=== PATIENT | female | born 1985 | race African-American/Black ===

== ENCOUNTER 2017-07-14 13:21 | Emergency (ER) | payer MEDICAID ==
[~2017-07-14] VITALS: Ht 149.9 cm; Wt 45.4 kg
[~2017-07-14 13:21] MED LIST: CIPRO500 MG PO; CYCLOBENZAPRINE10 MG ORAL; FERROUS SULFAT325 MG ORAL; HYDROCODON-ACE1 EA15 ORAL; IBUPROFEN800 MG ORAL; OCUFLOX5 ML OP; PREDNISONE20 MG ORAL; TRAMADOL HCL50 MG ORAL
[2017-07-14 13:52] VITALS: BP 125/87
--- NOTE | 2017-07-14 14:07 | Emergency Room Report ---
History of Present Illness General Chief Complaint: Allergic Reaction Source: Patient Present Illness HPI 31-year-old female presents to the emergency department for medication refill of prednisone which she takes as needed for her flare-ups of lupus. Patient states that since yesterday she has had moderate pressure and paresthesias on the right side of her face in addition to stiff joints and intermittent muscle spasms. Patient denies pain at this time. Patient states that her symptoms are similar in character to what she normally experiences during a lupus flare- up. Reports last flare was several months ago and has not recently been taking prednisone regularly. Patient denies fevers, chills, head trauma or fall. Patient does report that she had anxiety attack prior to arrival described hyperventilation which resulted in transient paresthesias in the bilateral hands. She also reports erythema, increased lacrimation and discharged to the right eye 3 days. Patient states that he was in contact with someone that had similar symptoms. Denies dysuria, frequency, urgency or hematuria. Patient denies itching, foreign body sensation, eye pain, or swelling to the eyelid. Denies CP, Palpitations, LOC, AMS, dizziness, Changes in Vision, or a sudden severe headache. Allergies: Coded Allergies: No Known Allergies (Unverified , 06/17/14) Patient History Past Medical History: see triage record, other - lupus Past Surgical History: none Pertinent Family History: none Last Menstrual Period: 06/28/17 Now: No Reviewed Nursing Documentation: PMH: Agreed; PSxH: Agreed Nursing Documentation-PMH Past Medical History: No History, Except For Review of Systems All Other Systems: negative except mentioned in HPI Physical Exam Vital Signs Date Time Temp Pulse Resp B/P (MAP) Pulse Ox O2 Delivery O2 Flow Rate FiO2 07/14/17 13:32 98.4 88 16 125/87 97 Room Air 98.4 Sp02 EP Interpretation: reviewed, normal General Appearance: no apparent distress, alert, GCS 15, non-toxic Head: normocephalic, atraumatic Eyes: bilateral eye normal inspection, bilateral eye PERRL, bilateral eye visual acuity - see nursing note, bilateral eye other - Scleral erythema of the right eye, visible purulent d/c noted in the corners of the right eye, EOMI, ENT: hearing grossly normal, normal voice, TMs + canals normal, other - no facial ttp. Neck: full range of motion Respiratory: lungs clear, normal breath sounds, speaking full sentences Cardiovascular #1: regular rate, rhythm Gastrointestinal: normal bowel sounds, non tender, soft Genitourinary: normal inspection, no CVA tenderness Musculoskeletal: back normal, gait/station normal, normal range of motion, non- tender Neurologic: alert, oriented x3, responsive, motor strength/tone normal, sensory intact, normal gait, speech normal, grossly normal Psychiatric: judgement/insight normal, anxious Skin: normal color, no rash, warm/dry, well hydrated Medical Decision Making PA Attestation Dr. Holley is my supervising Physician whom patient management has been discussed with. Diagnostic Impression: Primary Impression: Lupus Qualified Codes: L93.0 - Discoid lupus erythematosus Additional Impressions: Conjunctivitis Qualified Codes: H10.31 - Unspecified acute conjunctivitis, right eye Acute hyperventilation Muscle spasms of both lower extremities ER Course 31-year-old female presents to the emergency department for medication refill of prednisone which she takes as needed for her flare-ups of lupus. Patient states that since yesterday she has had moderate pressure and paresthesias on the right side of her face in addition to stiff joints and intermittent muscle spasms. Patient denies pain at this time. Patient states that her symptoms are similar in character to what she normally experiences during a lupus flare- up. Reports last flare was several months ago and has not recently been taking prednisone regularly. Patient denies fevers, chills, head trauma or fall. Patient does report that she had anxiety attack prior to arrival described hyperventilation which resulted in transient paresthesias in the bilateral hands. She also reports erythema, increased lacrimation and discharged to the right eye 3 days. Patient states that he was in contact with someone that had similar symptoms. Denies dysuria, frequency, urgency or hematuria. Patient denies itching, foreign body sensation, eye pain, or swelling to the eyelid. Denies CP, Palpitations, LOC, AMS, dizziness, Changes in Vision, or a sudden severe headache. Ddx considered but are not limited to: corneal abrasion, acute glaucoma, globe rupture, FB, reactive arthritis, CVA, lupus flare, Corneal Ulcer, conjunctivitis. Iridis, orbital cellulitis,keratitis, Just to name a few. Vital signs: are WNL, pt. is afebrile H&PE are most consistent with: bacterial conjunctivitis, and Lupus Flare-up ORDERS: none at this time. ED INTERVENTIONS: -Ativan PO -Prednisone PO DISCHARGE: At this time pt. is stable for d/c to home. Will provide printed patient care instructions, and any necessary prescriptions. Care plan and follow up instructions have been discussed with the patient prior to discharge. Last Vital Signs Date Time Temp Pulse Resp B/P (MAP) Pulse Ox O2 Delivery O2 Flow Rate FiO2 07/14/17 13:52 98.4 78 16 125/87 97 Room Air 98.4 Disposition: HOME, SELF-CARE Condition: Stable Scripts Methocarbamol* (ROBAXIN*) 500 Mg Tablet 500 MG PO TID for 7 Days, #21 TAB 0 Refills Prov: Albertina Cazares 07/14/17 Ofloxacin (OCUFLOX) 5 Ml Drops 2 DRP OP BID for 5 Days, #5 ML Prov: Albertina Cazares 07/14/17 Prednisone* (PREDNISONE*) 20 Mg Tablet 20 MG ORAL DAILY for 5 Days, #5 TAB 0 Refills Prov: Albertina Cazares 07/14/17 Patient Instructions: Bacterial Conjunctivitis, [id number], Hyperventilation Additional Instructions: Take medications as directed. Follow up with a Primary Care Provider in 3-5 days, even if your symptoms have resolved. --Please review list of primary care clinics, if you do not already have a primary care provider Return sooner to ED if new symptoms occur, or current symptoms become worse. Do not drink alcohol, drive, or operate heavy machinery while taking Robaxin as this may cause drowsiness. - Please note that this Emergency Department Report was dictated using [employer] Sciencesnatural resource manager technology software, occasionally this can lead to erroneous entry secondary to interpretation by the dictation equipment. Albertina Cazares July 14, 2017 14:07
[2017-07-14] MEDS ORDERED: LORazepam 0.5mg tab ORAL ONE (14:15)
[2017-07-14] MEDS ORDERED: PREDNISONE20 MG ORAL (14:40)
[2017-07-14] MEDS ORDERED: OCUFLOX5 ML OP (14:40)
[2017-07-14] MEDS ORDERED: ROBAXIN500 MG PO (14:40)
[2017-07-14 15:10] VITALS: BP 125/87
== END 2017-07-14 15:12 | disposition home or self-care (01) ==
LOC: EMR 14:36
DX: M32.9 Systemic lupus erythematosus, unspecified (principal); H10.9 Unspecified conjunctivitis; R06.4 Hyperventilation; M62.838 Other muscle spasm
CPT/HCPCS: 99284; J7512

== ENCOUNTER 2018-02-06 08:33 | Emergency (ER) | payer SELFPAY ==
[~2018-02-06] VITALS: Ht 149.9 cm; Wt 45.4 kg
[~2018-02-06 08:33] MED LIST changes: +ROBAXIN500 MG PO
[2018-02-06 08:40] VITALS: BP 113/80
[2018-02-06 09:23] LABS: HEMATOCRIT 35.3 % (37.0-47.0); HEMOGLOBIN 9.9 G/DL (12.0-16.0); MEAN CORPUSCULAR VOLUME 63 FL (80-99); PLATELET COUNT 413 K/UL (150-450); RED BLOOD COUNT 5.58 M/UL (4.20-5.40); RED CELL DISTRIBUTION WIDTH 16.4 % (11.6-14.8); WHITE BLOOD COUNT 5.8 K/UL (4.8-10.8)
[2018-02-06] MEDS ORDERED: Ketorolac 30mg Inj IV ONE (09:30)
[2018-02-06] MEDS ORDERED: Cyclobenzaprine 10mg Tab ORAL ONE (09:30)
[2018-02-06 09:33] LABS: ANION GAP 8 mmol/L (5-15); BLOOD UREA NITROGEN 8 mg/dL (7-18); CALCIUM 9.4 MG/DL (8.5-10.1); CARBON DIOXIDE 28 MMOL/L (21-32); CHLORIDE 102 MMOL/L (98-107); CREATININE 0.6 MG/DL (0.55-1.30); POTASSIUM 3.5 MMOL/L (3.5-5.1); SODIUM 138 MMOL/L (136-145)
--- NOTE | 2018-02-06 09:34 | Emergency Room Report ---
History of Present Illness General Chief Complaint: General Complaint Source: Patient Present Illness HPI This patient has a history of lupus. She uses prednisone for her lupus. She is not followed by a specific fiber optic technician. She does have a primary care physician who does refer out 2 different rheumatologists. Patient states she recently had a baby and has not been taking care of herself. She states over the past few days she has had a lupus flare. She describes her symptoms as body aches and fatigue. She also has right I pain and erythema. She is unable to keep her eye open secondary to pain. She states that this does happen with her lupus flares. She states that typically she gets a Toradol shot at emergency departments and some topical steroids for her eye. She denies chest pain or shortness of breath. She denies abdominal pain. She has no other complaints. Allergies: Coded Allergies: No Known Allergies (Unverified , 06/17/14) Patient History Past Medical History: see triage record, other - Lupus, SCD Social History: Reports: drug use; Denies: smoking, alcohol use Last Menstrual Period: 01/30/18 Reviewed Nursing Documentation: PMH: Agreed; PSxH: Agreed Nursing Documentation-PMH Past Medical History: No History, Except For Hx Cardiac Problems: No - Sickle Cell Anemia Hx Neurological Problems: No - ARTHRITIS, LUPUS Review of Systems All Other Systems: negative except mentioned in HPI Physical Exam Vital Signs Date Time Temp Pulse Resp B/P (MAP) Pulse Ox O2 Delivery O2 Flow Rate FiO2 02/06/18 08:40 98.4 91 18 113/80 98 Room Air Sp02 EP Interpretation: reviewed, normal General Appearance: no apparent distress, alert, GCS 15, non-toxic Head: normocephalic, atraumatic Eyes: right eye other - The R. eye has an irregular fluourescin uptake under garcia lamp in the center of the visual axis [id number]. ENT: hearing grossly normal, normal pharynx, no angioedema, normal voice Neck: full range of motion, supple/symm/no masses Respiratory: chest non-tender, lungs clear, normal breath sounds, no respiratory distress, no retraction, no accessory muscle use, speaking full sentences Cardiovascular #1: regular rate, rhythm, no edema Gastrointestinal: normal bowel sounds, non tender, soft, non-distended, no guarding, no rebound Rectal: deferred Musculoskeletal: back normal, gait/station normal, normal range of motion, non- tender, calf tenderness Neurologic: alert, oriented x3, responsive, motor strength/tone normal, sensory intact, speech normal Psychiatric: judgement/insight normal, memory normal, mood/affect normal, no suicidal/homicidal ideation Skin: normal color, no rash, warm/dry, well hydrated Medical Decision Making Diagnostic Impression: Primary Impression: Corneal ulcer Additional Impression: Lupus ER Course This patient has known lupus and presents with a lupus flare. She states that she does get corneal ulcers occasionally when she has a lupus flare. She is on prednisone orally. She sees her primary care physician primarily for her lupus. She does not have a regular fiber optic technician. She admits that she has not been taking care of herself since giving . I am concerned as there is a large corneal ulcer that uptakes on Garcia lamp. I discussed the case with Dr. Burks of ophthalmology. He recommends topical antibiotics and close follow- up with an district court justice. The patient was also educated on the importance of close follow-up with a fiber optic technician and better control of her lupus to prevent complications such as vision loss and other organ complications. Laboratory workup is otherwise reassuring. The patient will be given erythromycin ointment hourly to apply to her right I. She is also educated extensively on the dangers of not following up closely with an district court justice and the possibility of vision loss. Dr. Burks did not recommend any steroid drops. The patient needs to see a fiber optic technician urgently. The patient indicated understanding and intention to do so. The patient is given close return precautions and follow-up instructions. Please note that this Emergency Department Report was dictated using Live[employer] security architect technology software, occasionally this can lead to erroneous entry secondary to interpretation by the dictation equipment. Laboratory Tests Test 02/06/18 08:57 02/06/18 10:02 White Blood Count 5.8 K/UL (4.8-10.8) Red Blood Count 5.58 M/UL (4.20-5.40) H Hemoglobin 9.9 G/DL (12.0-16.0) L Hematocrit 35.3 % (37.0-47.0) L Mean Corpuscular Volume 63 FL (80-99) L Mean Corpuscular Hemoglobin 17.7 PG (27.0-31.0) L Mean Corpuscular Hemoglobin Concent 28.1 G/DL (32.0-36.0) L Red Cell Distribution Width 16.4 % (11.6-14.8) H Platelet Count 413 K/UL (150-450) Mean Platelet Volume 7.4 FL (6.5-10.1) Neutrophils (%) (Auto) % (45.0-75.0) Lymphocytes (%) (Auto) % (20.0-45.0) Monocytes (%) (Auto) % (1.0-10.0) Eosinophils (%) (Auto) % (0.0-3.0) Basophils (%) (Auto) % (0.0-2.0) Differential Total Cells Counted 100 Neutrophils % (Manual) 76 % (45-75) H Lymphocytes % (Manual) 14 % (20-45) L Monocytes % (Manual) 6 % (1-10) Eosinophils % (Manual) 2 % (0-3) Basophils % (Manual) 2 % (0-2) Band Neutrophils 0 % (0-8) Platelet Estimate Adequate Platelet Morphology Normal Hypochromasia 2+ Anisocytosis 1+ Microcytosis 3+ Erythrocyte Sedimentation Rate 12 MM/HR (0-20) Sodium Level 138 MMOL/L (136-145) Potassium Level 3.5 MMOL/L (3.5-5.1) Chloride Level 102 MMOL/L (98-107) Carbon Dioxide Level 28 MMOL/L (21-32) Anion Gap 8 mmol/L (5-15) Blood Urea Nitrogen 8 mg/dL (7-18) Creatinine 0.6 MG/DL (0.55-1.30) Estimate Glomerular Filtration Rate > 60 mL/min (>60) Glucose Level 78 MG/DL (74-106) Calcium Level 9.4 MG/DL (8.5-10.1) Total Bilirubin 0.4 MG/DL (0.2-1.0) Aspartate Amino Transferase (AST) 16 U/L (15-37) Alanine Aminotransferase (ALT) 14 U/L (12-78) Alkaline Phosphatase 58 U/L (46-116) C-Reactive Protein, Quantitative < 0.4 mg/dL (0.00-0.90) Total Protein 9.1 G/DL (6.4-8.2) H Albumin 4.0 G/DL (3.4-5.0) Globulin 5.1 g/dL Albumin/Globulin Ratio 0.8 (1.0-2.7) L Urine Color Pale yellow Urine Appearance Clear Urine pH 7 (4.5-8.0) Urine Specific [place] 1.010 (1.005-1.035) Urine Protein Negative (NEGATIVE) Urine Glucose (UA) Negative (NEGATIVE) Urine Ketones 3+ (NEGATIVE) H Urine Blood Negative (NEGATIVE) Urine Nitrite Negative (NEGATIVE) Urine Bilirubin Negative (NEGATIVE) Urine Urobilinogen Normal MG/DL (0.0-1.0) Urine Leukocyte Esterase 1+ (NEGATIVE) H Urine RBC 0 /HPF (0 - 2) Urine WBC 0-2 /HPF (0 - 2) Urine Squamous Epithelial Cells Few /LPF (NONE/OCC) Urine Bacteria Occasional /HPF (NONE) Urine HCG, Qualitative Negative (NEGATIVE) Last Vital Signs Date Time Temp Pulse Resp B/P (MAP) Pulse Ox O2 Delivery O2 Flow Rate FiO2 02/06/18 08:40 98.4 91 18 113/80 98 Room Air Status: improved Disposition: HOME, SELF-CARE Condition: Improved Referrals: NOT CHOSEN IPA/,REFERRING (PCP) Kathi Schmid DO Feb 06, 2018 09:34
[2018-02-06 09:38] LABS: ALANINE AMINOTRANSFERASE 14 U/L (12-78); ALBUMIN/GLOBULIN RATIO 0.8 (1.0-2.7); ALKALINE PHOSPHATASE 58 U/L (46-116); ASPARTATE AMINO TRANSFERASE 16 U/L (15-37); BILIRUBIN,TOTAL 0.4 MG/DL (0.2-1.0)
[2018-02-06] MEDS ORDERED: Fluorescein Strips ONE (10:04)
[2018-02-06] MEDS ORDERED: Tetracaine 0.5% Opth 4ml Soln RIGHT EYE ONE (10:15)
[2018-02-06] MEDS ORDERED: Fluorescein Strips RIGHT EYE ONE (10:15)
[2018-02-06 10:20] LABS: APPEARANCE,URINE CLEAR; BILIRUBIN, URINE NEGATIVE (NEGATIVE); COLOR,URINE PALE YELLOW; GLUCOSE, URINE (UA) NEGATIVE (NEGATIVE); KETONES,URINE 3+ (NEGATIVE); LEUKOCYTE ESTERASE ,URINE 1+ (NEGATIVE); NITRITE,URINE NEGATIVE (NEGATIVE); PH,URINE 7 (4.5-8.0); PROTEIN,URINE NEGATIVE (NEGATIVE); UROBILINOGEN,URINE NORMAL MG/DL (0.0-1.0)
[2018-02-06 12:00] VITALS: BP 124/68
[2018-02-06] MEDS ORDERED: ERYTHROMYCIN3.5 GM RIGHT EYE (12:52)
[2018-02-06] MEDS ORDERED: CYCLOBENZAPRINE10 MG ORAL (13:01)
[2018-02-06 13:07] VITALS: BP 124/68
== END 2018-02-06 13:08 | disposition home or self-care (01) ==
LOC: EMR 09:19
DX: H16.001 Unspecified corneal ulcer, right eye (principal); M32.9 Systemic lupus erythematosus, unspecified
CPT/HCPCS: 36415; 80053; 81003; 81025; 85007; 85025; 85651; 86140; 96361; 96374; 99284; J1885

== ENCOUNTER 2018-02-20 15:01 | Emergency (ER) | payer SELFPAY ==
[~2018-02-20] VITALS: Ht 149.9 cm; Wt 45.4 kg
[~2018-02-20 15:01] MED LIST changes: +ERYTHROMYCIN3.5 GM RIGHT EYE
[2018-02-20 15:10] VITALS: BP 118/76
[2018-02-20] MEDS ORDERED: Albuterol/Ipratropium 3ml neb HHN ONE (15:30)
--- NOTE | 2018-02-20 15:36 | Emergency Room Report ---
History of Present Illness General Chief Complaint: General Complaint Source: Patient Present Illness HPI 32-year-old female patient presents the ER complaining of lupus flare. Reports symptoms have been present for the past 3 days. States has not been taking any prednisone or other medication for relief of symptoms. Patient reports that she has a follow-up appointment scheduled with her doctor next week. Patient reports previously seen here a few days ago for corneal ulcer, states has been taking antibiotic eyedrops and symptoms have improved. Denies fever chest pain. Reports some difficulty breathing, observed hyperventilating in the ER, Pulse ox over 95 at triage. Denies history of asthma or TX. History of similar symptoms int he past, hx of anxiety, seen in ER here for similar symptoms. Denies abdominal pain. Denies vomiting or diarrhea. Requesting work note. Denies dysuria, hematuria. Requesting work note. Allergies: Coded Allergies: No Known Allergies (Unverified , 06/17/14) Patient History Past Medical History: see triage record Now: No Reviewed Nursing Documentation: PMH: Agreed; PSxH: Agreed Nursing Documentation-PMH Past Medical History: No History, Except For Hx Cardiac Problems: No - Sickle Cell Anemia Hx Neurological Problems: No - ARTHRITIS, LUPUS Review of Systems All Other Systems: negative except mentioned in HPI Physical Exam Vital Signs Date Time Temp Pulse Resp B/P (MAP) Pulse Ox O2 Delivery O2 Flow Rate FiO2 02/20/18 15:07 98.4 90 19 121/79 98 Room Air Sp02 EP Interpretation: reviewed, normal General Appearance: well appearing, no apparent distress, alert, GCS 15, non- toxic Head: normocephalic, atraumatic Eyes: left eye Scleral Injection; bilateral eye normal inspection, bilateral eye PERRL ENT: hearing grossly normal, normal pharynx, no angioedema, normal voice, TMs + canals normal, uvula midline, moist mucus membranes Neck: full range of motion Respiratory: lungs clear, normal breath sounds, no rhonchi, no respiratory distress, no accessory muscle use, no wheezing, speaking full sentences Cardiovascular #1: regular rate, rhythm, no edema Cardiovascular #2: 2+ radial (R), 2+ radial (L) Gastrointestinal: non tender, soft, no mass, non-distended, no guarding, no rebound Genitourinary: no CVA tenderness Musculoskeletal: back normal, digits/nails normal, gait/station normal, normal range of motion, non-tender, no calf tenderness, Vicenta's Sign negative Neurologic: alert, oriented x3, responsive, motor strength/tone normal, sensory intact Psychiatric: mood/affect normal Skin: no rash Lymphatic: no adenopathy Medical Decision Making PA Attestation Dr. Callahan is my supervising Physician whom patient management has been discussed with. Diagnostic Impression: Primary Impression: Lupus Additional Impression: Breathing difficulty ER Course Pt presents to ED c/o lupus flare. DDX considered but are not limited to lupus complication, asthma, viral URI, influenza, bronchitis, pneumonia, anxiety, arthritis, influenza, viral URI. No rhonchi or rales, patient afebrile, low suspicion for pneumonia at this time , does not require x-rays or imaging. Negative Vicenta sign, no tachycardia, no hemoptysis, no calf pain, low suspicion for PE per Well's criteria. Denies hx of TX, denies chest pain, low suspicion for cardiac etiology of symptoms. VITAL SIGNS are WNL, patient is afebrile. Ordered breathing treatment and medication. ER COURSE Lungs clear to auscultation, his rhonchi rales, no stridor, decreased breath sounds however will order chest x-ray and breathing treatment for patient. Patient provided with prednisone. Duoneb breathing treatment provided. Following treatment patient states no longer having difficulty with breathing. Patient is resting comfortably in no acute distress. CXR shows no acute disease. Breathing symptoms likely bronchitis vs related to hx of anxiety and hyperventilation. Provide patient with albuterol inhaler and prednisone at discharge home. Take Tylenol for pain symptoms related to lupus flare and prednisone. Provided with a work note per patient request. Advised to follow-up with primary care provider and senior database engineer. She states called and scheduled appointment. ER precautions given. DISCHARGE: -Rx given for Prednisone. -Rx provided for Albuterol MDI Rx provided for Tylenol At this time pt is stable for d/c to home. Patient is resting comfortably in no acute distress, nontoxic appearing, able to answer questions without difficulty. Patient to take medications as instructed Will provide with patient care instructions and any necessary prescriptions. Care plan and follow-up instructions provided. Patient instructed to follow-up with primary care provider in 3 - 5 days. Patient questions asked and answered. Patient reports understanding and agreement to treatment plan. ER precautions given. Patient instructed to return to ER immediately for any new or worsening of symptoms including but not limited to increasing SOB, persistent fever. - Please note that this Emergency Department Report was dictated using [employer]university president technology software, occasionally this can lead to erroneous entry secondary to interpretation by the dictation equipment. Chest X-Ray Diagnostic Results Chest X-Ray Diagnostic Results : Chest X-Ray Ordered: Yes # of Views/Limited/Complete: 1 View Indication: Chest Pain EP Interpretation: Yes PA Xray: Interpretation reviewed, by supervising MD, and agrees with findings. Interpretation: no consolidation, no effusion, no pneumothorax, no acute cardiopulmonary disease Impression: No acute disease NORIS Scribaminta Text Aamir Almodovar PA-C Last Vital Signs Date Time Temp Pulse Resp B/P (MAP) Pulse Ox O2 Delivery O2 Flow Rate FiO2 02/20/18 15:07 98.4 90 19 121/79 98 Room Air Status: improved Disposition: HOME, SELF-CARE Condition: Stable Scripts Albuterol Sulfate* (ALBUTEROL SULFATE MDI*) 8.5 Gm Hfa.aer.ad 2 PUFF INH Q6H, #1 INH 0 Refills Prov: Dio Almodovar 02/20/18 Acetaminophen* (TYLENOL EXTRA STRENGTH*) 500 Mg Tablet 500 MG ORAL Q8H PRN for Prn Headache/Temp > 101, #30 TAB 0 Refills Prov: Dio Almodovar 02/20/18 Prednisone* (PREDNISONE*) 20 Mg Tablet 40 MG ORAL DAILY for 4 Days, #8 TAB Prov: Dio Almodovar 02/20/18 Patient Instructions: Shortness of Breath, [id number], Systemic Lupus Erythematosus, Adult Additional Instructions: Followup with primary care provider in 3 -5 days. Take medications as directed. Patient questions asked and answered. ER precautions given, patient instructed to return to ER immediately for any new or worsening of symptoms. Dio Almodovar Feb 20, 2018 15:35
[2018-02-20] MEDS ORDERED: Ketorolac 30mg Inj IM ONE (15:45)
--- NOTE | 2018-02-20 16:14 | Diagnostic Imaging Report ---
Indication: Chest pain Technique: One view of the chest Comparison: 02/26/2015 Findings: Lungs and pleural spaces are clear. Heart size is normal. No significant interim change Impression: No acute process
[2018-02-20] MEDS ORDERED: PREDNISONE20 MG ORAL (16:21)
[2018-02-20] MEDS ORDERED: TYLENOL EXTRA500 MG ORAL (16:21)
[2018-02-20] MEDS ORDERED: ALBUTEROL SULF8.5 GM INH (16:21)
[2018-02-20 16:32] VITALS: BP 120/81
== END 2018-02-20 16:31 | disposition home or self-care (01) ==
LOC: EMR 16:04
DX: M32.9 Systemic lupus erythematosus, unspecified (principal); R06.00 Dyspnea, unspecified
CPT/HCPCS: 71045; 94640; 94664; 96372; 99284; J1885; J7512; J7620

== ENCOUNTER 2018-03-05 08:29 | Emergency (ER) | payer SELFPAY ==
[~2018-03-05] VITALS: Ht 149.9 cm; Wt 45.4 kg
[~2018-03-05 08:29] MED LIST changes: +ALBUTEROL SULF8.5 GM INH; +TYLENOL EXTRA500 MG ORAL
[2018-03-05 09:07] VITALS: BP 102/67
--- NOTE | 2018-03-05 09:07 | NUR ---
ED Nurse Note:pt. came for left eye burning pain and light sensativity since yesterday, pt. was not able to open left eye for visual acuity check
[2018-03-05] MEDS ORDERED: Fluorescein Strips RIGHT EYE ONE (10:00)
[2018-03-05] MEDS ORDERED: Tetracaine 0.5% Opth 4ml Soln RIGHT EYE ONE (10:00)
--- NOTE | 2018-03-05 10:04 | Emergency Room Report ---
History of Present Illness General Chief Complaint: Eye Problems Source: Patient, Medical Record Present Illness HPI Patient presents with complaints of lupus flare Reports that she gets flareups with pain to her eyes when this happens Recently she was here with discomfort to the right eye however now this morning the left eye started to have discomfort Denies any visual change to it however she feels that when the pain comes on there is some blurriness Denies any vomiting or diarrhea Patient reports that she has not seen any specialist since her last visit here Denies any fevers or chills denies any neck pain she does have some photophobia with this discomfort Allergies: Coded Allergies: No Known Allergies (Unverified , 06/17/14) Patient History Past Medical History: see triage record Pertinent Family History: none Last Menstrual Period: 02/22/2018 Reviewed Nursing Documentation: PMH: Agreed; PSxH: Agreed Nursing Documentation-PMH Past Medical History: No History, Except For Hx Cardiac Problems: No - Sickle Cell Anemia Hx Hypertension: No Hx Pacemaker: No Hx Asthma: No Hx COPD: No Hx Diabetes: No Hx Cancer: No Hx Gastrointestinal Problems: No Hx Dialysis: No History Of Psychiatric Problem: No Hx Neurological Problems: No - ARTHRITIS, LUPUS Hx Cerebrovascular Accident: No Hx Seizures: No Review of Systems All Other Systems: negative except mentioned in HPI Physical Exam Vital Signs Date Time Temp Pulse Resp B/P (MAP) Pulse Ox O2 Delivery O2 Flow Rate FiO2 03/05/18 08:43 98.4 91 14 102/67 98 Room Air Sp02 EP Interpretation: reviewed, normal General Appearance: no apparent distress Head: normocephalic, atraumatic Eyes: left eye other - Mild conjunctival irritation ENT: normal pharynx Neck: supple, thyroid normal Respiratory: lungs clear, normal breath sounds Cardiovascular #1: regular rate, rhythm, no edema Gastrointestinal: non tender, soft, no mass Genitourinary: no CVA tenderness Musculoskeletal: normal inspection Neurologic: alert, oriented x3, responsive Skin: normal color, no rash, warm/dry Lymphatic: no adenopathy Medical Decision Making Diagnostic Impression: Primary Impression: Conjunctivitis Additional Impressions: Lupus Chronic pain ER Course Patient's presentation today reveals some irritation of the left conjunctiva Floor seen stain with tetracaine drops were applied there is no sign of any uptake Patient has similar presentation recently affecting the right eye Patient at that time was discussed regarding possible corneal injury however reports that she has not seen any specialty as of yet in the right eye did improve Patient was discussed regarding the need for close follow-up Her signs and symptoms could be leading to worsening pathology and patient requires improved follow-up Last Vital Signs Date Time Temp Pulse Resp B/P (MAP) Pulse Ox O2 Delivery O2 Flow Rate FiO2 03/05/18 09:07 98.4 69 14 102/67 98 Room Air Status: improved Disposition: HOME, SELF-CARE Condition: Improved Scripts Acetaminophen With Codeine (T#3) (TYLENOL #3 TAB*) Y Tab 1 TAB ORAL Q8H PRN for For Pain, #10 TAB Prov: London Holley DO 03/05/18 Referrals: NOT CHOSEN IPA/MD,REFERRING (PCP) Additional Instructions: Patient is provided with the discharge instructions notified to follow up with primary doctor in the next 2-3 days otherwise return to the er with any worsening symptoms. Please note that this report is being documented using DRAGON technology. This can lead to erroneous entry secondary to incorrect interpretation by the dictating instrument. London Holley DO Mar 05, 2018 10:04
[2018-03-05] MEDS ORDERED: ACETAMINOPHEN-1 EAC1 ORAL (10:12)
[2018-03-05] MEDS ORDERED: Ketorolac 60mg Inj IM ONE (10:15)
[2018-03-05 10:40] VITALS: BP 102/67
--- NOTE | 2018-03-05 10:42 | NUR ---
PT is Dc per Md order. pt vital signs is stable. pt is alert and oriented times 4, pt is able to ambulate with steady gait. pt has left with all belongings, as well as DC notes and prescriptions. pt is able to teach back DC notes and prescriptions. pt vital signs, status, and condition was reported to ERMD prior to DC. pt is instructed to follow up with primary provider as soon as possible. pt is instructed to return to ER as soon as possible if any abnormalities.
== END 2018-03-05 10:42 | disposition home or self-care (01) ==
LOC: EMR 08:53
DX: H10.9 Unspecified conjunctivitis (principal); M32.9 Systemic lupus erythematosus, unspecified; G89.29 Other chronic pain
CPT/HCPCS: 96372; 99283

== ENCOUNTER 2018-03-13 10:11 | Emergency (ER) | payer MEDICAID ==
[~2018-03-13] VITALS: Ht 149.9 cm; Wt 45.4 kg
[~2018-03-13 10:11] MED LIST changes: +ACETAMINOPHEN-1 EAC1 ORAL
[2018-03-13 10:25] VITALS: BP 121/80
--- NOTE | 2018-03-13 10:25 | NUR ---
ED Nurse Note: A/OX4. AMBULATED IN TO ER DUE TO PAIN IN THE RIGHT EYE AND JOINT PAIN 10/10 SINCE LAST NIGHT. RED EYE AND TEAR NOTED IN THE RIGHT EYE. PT CAME IN WITH DRY DRESSING APPLIED ON THE RIGHT EYE. HX OF LUPUS. NO TRAUMA NOTED.
[2018-03-13] MEDS ORDERED: oxyCODONE HCL/Acetaminophen 5/325mg ORAL ONE (10:30)
--- NOTE | 2018-03-13 10:50 | NUR ---
ED Nurse Note: SPECIMEN SENT DOWN TO THE LAB
[2018-03-13 10:57] LABS: BASOPHILS % (AUTO) 1.1 % (0.0-2.0); EOSINOPHILS % (AUTO) 1.2 % (0.0-3.0); HEMATOCRIT 32.4 % (37.0-47.0); HEMOGLOBIN 9.2 G/DL (12.0-16.0); LYMPHOCYTES % (AUTO) 13.9 % (20.0-45.0); MEAN CORPUSCULAR VOLUME 63 FL (80-99); MONOCYTES % (AUTO) 7.1 % (1.0-10.0); NEUTROPHILS % (AUTO) 76.8 % (45.0-75.0); PLATELET COUNT 348 K/UL (150-450); RED BLOOD COUNT 5.13 M/UL (4.20-5.40); RED CELL DISTRIBUTION WIDTH 17.2 % (11.6-14.8); WHITE BLOOD COUNT 8.1 K/UL (4.8-10.8)
[2018-03-13 11:03] LABS: ANION GAP 10 mmol/L (5-15); BLOOD UREA NITROGEN 7 mg/dL (7-18); CALCIUM 9.4 MG/DL (8.5-10.1); CARBON DIOXIDE 26 MMOL/L (21-32); CHLORIDE 103 MMOL/L (98-107); CREATININE 0.5 MG/DL (0.55-1.30); POTASSIUM 3.7 MMOL/L (3.5-5.1); SODIUM 138 MMOL/L (136-145)
[2018-03-13 11:08] LABS: ALANINE AMINOTRANSFERASE 7 U/L (12-78); ALBUMIN/GLOBULIN RATIO 0.9 (1.0-2.7); ALKALINE PHOSPHATASE 50 U/L (46-116); ASPARTATE AMINO TRANSFERASE 17 U/L (15-37); BILIRUBIN,TOTAL 0.3 MG/DL (0.2-1.0)
[2018-03-13] MEDS ORDERED: Proparacaine 0.5% Opth Soln 15ml BOTH EYES ONE (11:15)
[2018-03-13] MEDS ORDERED: Fluorescein Strips ONE (11:19)
[2018-03-13] MEDS ORDERED: Tetracaine 0.5% Opth 4ml Soln ONE (11:19)
[2018-03-13] MEDS ORDERED: Fluorescein Strips RIGHT EYE ONE (11:30)
[2018-03-13] MEDS ORDERED: Tetracaine 0.5% Opth 4ml Soln RIGHT EYE ONE (11:30)
--- NOTE | 2018-03-13 12:38 | Emergency Room Report ---
History of Present Illness General Chief Complaint: General Complaint Source: Patient Present Illness HPI Old female with a history of lupus presents with arthralgias and right eye pain , she reports she has blurred vision in her right eye and is red, light makes it worse, she reports she had something similar in the past and her other eye, she is not sure whether she injured her eye but was scratching it last night she denies use of contact lenses, fevers, focal joint pain just reports diffuse pain. He has not tried any pAin medications for her symptoms. Allergies: Coded Allergies: No Known Allergies (Unverified , 06/17/14) Patient History Past Medical History: see triage record Now: No Reviewed Nursing Documentation: PMH: Agreed; PSxH: Agreed Nursing Documentation-PMH Hx Cardiac Problems: No - Sickle Cell Anemia Hx Hypertension: No Hx Pacemaker: No Hx Asthma: No Hx COPD: No Hx Diabetes: No Hx Cancer: No Hx Gastrointestinal Problems: No Hx Dialysis: No Hx Neurological Problems: No - ARTHRITIS, LUPUS Hx Cerebrovascular Accident: No Hx Seizures: No Review of Systems All Other Systems: negative except mentioned in HPI Physical Exam Vital Signs Date Time Temp Pulse Resp B/P (MAP) Pulse Ox O2 Delivery O2 Flow Rate FiO2 03/13/18 10:20 98.8 78 16 120/80 100 Room Air Sp02 EP Interpretation: reviewed, normal General Appearance: no apparent distress, alert, non-toxic Head: normocephalic Eyes: right eye fluoroscene uptake - +large abrasion on mid cornea; left eye Scleral Injection; bilateral eye normal inspection, bilateral eye PERRL, bilateral eye EOMI ENT: normal ENT inspection, hearing grossly normal, normal pharynx, no angioedema, normal voice, moist mucus membranes Neck: normal inspection, full range of motion, supple, supple/symm/no masses Respiratory: chest non-tender, lungs clear, normal breath sounds, chest symmetrical, palpation of chest normal Cardiovascular #1: normal peripheral pulses, regular rate, rhythm Cardiovascular #2: 2+ radial (R), 2+ radial (L) Gastrointestinal: normal inspection, non tender, soft, no mass, no guarding, no rebound Rectal: deferred Genitourinary: normal inspection, no CVA tenderness Musculoskeletal: back normal, gait/station normal, normal range of motion, non- tender, no calf tenderness, other - no obvious joint inflammation Neurologic: alert, responsive, project accountant III-XII nml as tested, motor strength/tone normal, sensory intact, speech normal Psychiatric: judgement/insight normal, memory normal, mood/affect normal Skin: normal color, no rash, warm/dry, normal turgor Lymphatic: no adenopathy Medical Decision Making Diagnostic Impression: Primary Impression: Lupus Additional Impression: Corneal abrasion ER Course Patient with R corneal abrasion, will give analgesics, Gauze eye patch already placed in ED, labs unremarkable, joint pain likely chronic vs. mild acute lupus flare, will dc with analgesics as well and recs for ophtho f/u. Last Vital Signs Date Time Temp Pulse Resp B/P (MAP) Pulse Ox O2 Delivery O2 Flow Rate FiO2 03/13/18 11:17 98.8 03/13/18 10:25 78 16 Room Air 03/13/18 10:25 121/80 100 Disposition: HOME, SELF-CARE Condition: Stable Referrals: NON PHYSICIAN (PCP) BENJI BOWIE M.D Mar 13, 2018 12:38
[2018-03-13] MEDS ORDERED: SODIUM SULAMYD RIGHT EYE (12:42)
[2018-03-13] MEDS ORDERED: NORCO 5-325 TA1 EACH ORAL (12:42)
--- NOTE | 2018-03-13 13:02 | NUR ---
ED Nurse Note: A/OX4. PT IS CLEARED BY DR. BOWIE. DC INSTRUCTION AND PRESCRIPTIONS GIVEN, PT VERBALIZED UNDERSTANDING. IV AND ID WRIST REMOVED. ALL BELONGINGS GIVEN TO PT. PT AMBULATED OUT OF ER WITH STEADY GAIT.
[2018-03-13 13:04] VITALS: BP 108/75
== END 2018-03-13 13:05 | disposition home or self-care (01) ==
LOC: EMR 11:19 → EDBEDREQ 11:20 → CANBEDREQ 12:37 → EMR 13:05
DX: M32.9 Systemic lupus erythematosus, unspecified (principal); S05.01XA Injury of conjunctiva and corneal abrasion without foreign body, right eye, initial encounter; X58.XXXA Exposure to other specified factors, initial encounter; Y92.9 Unspecified place or not applicable
CPT/HCPCS: 36415; 80053; 85025; 99284

== ENCOUNTER 2018-05-28 05:29 | Emergency (ER) | payer MEDICAID ==
[~2018-05-28] VITALS: Ht 149.9 cm; Wt 43.1 kg
[~2018-05-28 05:29] MED LIST changes: +NORCO 5-325 TA1 EACH ORAL; +SODIUM SULAMYD RIGHT EYE
[2018-05-28 05:39] VITALS: BP 137/73
--- NOTE | 2018-05-28 05:53 | NUR ---
ED Nurse Note: Patient reports pain all over in joints and pain int eh left eye, patient suspects abrasions.
[2018-05-28] MEDS ORDERED: Fluorescein Strips BOTH EYES ONE (06:00)
[2018-05-28] MEDS ORDERED: IBUPROFEN600 MG ORAL (06:10)
--- NOTE | 2018-05-28 06:11 | Emergency Room Report ---
History of Present Illness General Chief Complaint: Pain Source: Patient Present Illness HPI This is a 32-year-old female with history of lupus and sickle cell anemia. She presents with chief complaint of generalized pain. She said her lupus is flaring up. She started on prednisone. She does not take anything else for her lupus. Denies any nausea vomiting. Keller that she may be dehydrated and severely anemic and a blood transfusion. Unknown last blood work. She had blood work here in February and hemoglobin is 9.2. Patient also complaining of cornea abrasion to her right eye. She denies any other complaint. Pain is 10 out of 10. Allergies: Coded Allergies: No Known Allergies (Unverified , 05/28/18) Patient History Past Medical History: see triage record, old chart reviewed Past Surgical History: other Pertinent Family History: none Social History: Denies: smoking Last Menstrual Period: 05-08-2018 Now: No Immunizations: other Reviewed Nursing Documentation: PMH: Agreed; PSxH: Agreed Nursing Documentation-PMH Hx Cardiac Problems: No - Sickle Cell Anemia Hx Hypertension: No Hx Pacemaker: No Hx Asthma: No Hx COPD: No Hx Diabetes: No Hx Cancer: No Hx Gastrointestinal Problems: No Hx Dialysis: No Hx Neurological Problems: No - ARTHRITIS, LUPUS Hx Cerebrovascular Accident: No Hx Seizures: No Review of Systems Eye: Reports: eye pain; Denies: blurred vision ENT: Denies: ear pain, nose congestion, throat swelling Respiratory: Denies: cough, shortness of breath Cardiovascular: Denies: chest pain, palpitations Gastrointestinal: Denies: abdominal pain, diarrhea, nausea, vomiting Musculoskeletal: Reports: muscle pain; Denies: back pain, joint pain Skin: Denies: rash Neurological: Denies: headache, numbness Endocrine: Denies: increased thirst, increased urine Hematologic/Lymphatic: Denies: easy bruising All Other Systems: negative except mentioned in HPI Physical Exam Vital Signs Date Time Temp Pulse Resp B/P (MAP) Pulse Ox O2 Delivery O2 Flow Rate FiO2 05/28/18 05:36 98.4 100 16 137/73 98 Room Air vitals normal Sp02 EP Interpretation: reviewed, normal General Appearance: well appearing, no apparent distress, alert Head: normocephalic, atraumatic Eyes: bilateral eye PERRL, bilateral eye EOMI, bilateral eye other - No uptake ENT: hearing grossly normal, normal pharynx Neck: full range of motion, supple, no meningismus Respiratory: chest non-tender, lungs clear, normal breath sounds Cardiovascular #1: regular rate, rhythm, no murmur Gastrointestinal: normal bowel sounds, non tender, no mass, no organomegaly, no bruit, non-distended Musculoskeletal: back normal, gait/station normal, normal range of motion Psychiatric: mood/affect normal Skin: warm/dry Medical Decision Making Diagnostic Impression: Primary Impression: Chronic pain Qualified Codes: G89.4 - Chronic pain syndrome Additional Impressions: Lupus Anemia Qualified Codes: D64.9 - Anemia, unspecified ER Course Patient presents with exacerbation of chronic pain. She has multiple prescription for pain medication on the computer. She was sleeping on the phone even in triage and with me. She refused to get off the phone. She asked for blood test to see if she is anemic. She looks well. No evidence of any cornea abrasion. When I asked if she is taking any other medication for her lupus she said no and got very defensive. I explained to her that prednisone is not a mainstay treatment of lupus. She will need to see a collision mechanic. She may need to be on folic acid and other medication for her sickle cell. Patient is otherwise stable. We'll discharge home and labs are baseline. Patient hemoglobin is 8.4. She is medically stable. She does not meet criteria for transfusion. I explained this to the patient. She needs to take her iron supplement. She is not taking them. She is requesting blood transfusion but explained to her that she does not meet criteria for this. We' ll discharge home. She will need to see a tunneller for further workup and follow-up. Last Vital Signs Date Time Temp Pulse Resp B/P (MAP) Pulse Ox O2 Delivery O2 Flow Rate FiO2 05/28/18 05:36 98.4 100 16 137/73 98 Room Air Status: improved Disposition: HOME, SELF-CARE Condition: Stable Referrals: NOT CHOSEN IPA/,REFERRING (PCP) Additional Instructions: Follow-up with your doctor in a week. You may need a referral to see a collision mechanic or tunneller [id number] lupus and sickle cell. Return if symptom worsen. Costa Roy MD May 28, 2018 06:11
[2018-05-28] MEDS ORDERED: Ketorolac 30mg Inj IV ONE (06:15)
--- NOTE | 2018-05-28 06:15 | NUR ---
ED Nurse Note: Patient is on the phone in leisure conversation, reports pain level of 10/10, generalized. Medication administered, will continue to monitor.
[2018-05-28 06:20] LABS: BASOPHILS % (AUTO) 0.7 % (0.0-2.0); HEMATOCRIT 29.8 % (37.0-47.0); HEMOGLOBIN 8.4 G/DL (12.0-16.0); LYMPHOCYTES % (AUTO) 20.2 % (20.0-45.0); MEAN CORPUSCULAR VOLUME 63 FL (80-99); MONOCYTES % (AUTO) 10.8 % (1.0-10.0); NEUTROPHILS % (AUTO) 66.3 % (45.0-75.0); PLATELET COUNT 390 K/UL (150-450); RED BLOOD COUNT 4.69 M/UL (4.20-5.40); RED CELL DISTRIBUTION WIDTH 17.3 % (11.6-14.8)
[2018-05-28 06:43] VITALS: BP 137/73
--- NOTE | 2018-05-28 06:45 | NUR ---
ED Nurse Note: PAtietn cleared for discharge, patient is unhappy with examination and has specific request for antibiotic dropss. Request was not accomodated because of negative exam. PAtient discharged in stable condition, A&Ox4, ambulatory with steady gait, vit signs stable. patient verbalized understanding of discharge instructions.
[2018-05-28] MEDS ORDERED: NKM (07:17)
[2018-05-28] MEDS ORDERED: ERYTHROMYCIN3.5 GM LEFT EYE (09:18)
[2018-05-28] MEDS ORDERED: CILOXAN3.5 GM OP (09:22)
== END 2018-05-28 06:43 | disposition home or self-care (01) ==
LOC: EMR 05:59
DX: G89.29 Other chronic pain (principal); M32.9 Systemic lupus erythematosus, unspecified; D64.9 Anemia, unspecified
CPT/HCPCS: 36415; 85025; 96361; 96374; 99284; J1885

== ENCOUNTER 2018-05-28 07:09 | Emergency (ER) | payer MEDICAID ==
[~2018-05-28] VITALS: Ht 149.9 cm; Wt 43.1 kg
[~2018-05-28 07:09] MED LIST changes: +IBUPROFEN600 MG ORAL
[2018-05-28] MEDS ORDERED: NKM (07:17)
--- NOTE | 2018-05-28 07:24 | NUR ---
ED Nurse Note: Pt c/o bilateral eye pain and lupus flare up. Pt was seen here at [facility] last night and was discharged. Pt came in again for a second opinion. Pt is AAO x4, ambulatory and VSS.
--- NOTE | 2018-05-28 07:34 | Emergency Room Report ---
History of Present Illness General Chief Complaint: General Complaint Source: Patient, Medical Record Present Illness HPI This patient is well-known to [facility]. She presents here regularly. She has a history of sickle cell disease vs trait and lupus. She presents today for flare of her lupus retinitis in her left eye. I saw her for this same condition in February of this year. When I asked her she hasn't followed up with an carrier washer general freight agent as I had instructed her to do so, she did not. She is very upset about her interaction with Dr. Roy just prior to seeing me; she was seen by Dr. Roy and discharged about 45 minutes ago. She refused to leave the hospital and checked back in to the emergency department. She states she did not like the way she was treated and that she has pain and discharge in her left eye for the past 3 days. She still does not have any lupus preventative medications and has not seen a general freight agent despite being told multiple times to do so. She is also not seen an carrier washer. She states that she is very busy which is why she hasn 't followed up with a general freight agent or carrier washer. She is taking prednisone. She states she takes the prednisone when her lupus flares. Allergies: Coded Allergies: No Known Allergies (Unverified , 05/28/18) Patient History Past Medical History: see triage record, other - Lupus Social History: Denies: smoking, alcohol use, drug use Last Menstrual Period: 05/08/18 Reviewed Nursing Documentation: PMH: Agreed; PSxH: Agreed Nursing Documentation-PMH Past Medical History: No History, Except For Hx Cardiac Problems: No - Sickle Cell Anemia Hx Hypertension: No Hx Pacemaker: No Hx Asthma: No Hx COPD: No Hx Diabetes: No Hx Cancer: No Hx Gastrointestinal Problems: No Hx Dialysis: No Hx Neurological Problems: No - ARTHRITIS, LUPUS Hx Cerebrovascular Accident: No Hx Seizures: No Review of Systems All Other Systems: negative except mentioned in HPI Physical Exam Vital Signs Date Time Temp Pulse Resp B/P (MAP) Pulse Ox O2 Delivery O2 Flow Rate FiO2 05/28/18 07:14 98.1 87 18 114/65 99 Room Air Sp02 EP Interpretation: reviewed, normal General Appearance: no apparent distress, alert, GCS 15, non-toxic Head: normocephalic, atraumatic Eyes: left eye fluoroscene uptake - [id number] circular area of fluorescein uptake over the middle of the visual axis.; bilateral eye PERRL ENT: hearing grossly normal, normal pharynx, no angioedema, normal voice Neck: full range of motion, supple/symm/no masses Respiratory: chest non-tender, lungs clear, normal breath sounds, no respiratory distress, no retraction, no accessory muscle use, speaking full sentences Cardiovascular #1: regular rate, rhythm, no edema Gastrointestinal: normal bowel sounds, non tender, soft, non-distended, no guarding, no rebound Rectal: deferred Musculoskeletal: back normal, gait/station normal, normal range of motion, non- tender Neurologic: alert, oriented x3, responsive, motor strength/tone normal, sensory intact, speech normal Psychiatric: judgement/insight normal, memory normal, mood/affect normal, no suicidal/homicidal ideation Skin: normal color, no rash, warm/dry, well hydrated Medical Decision Making Diagnostic Impression: Primary Impression: Lupus Additional Impressions: Acute conjunctivitis of left eye Iron deficiency anemia Corneal ulcer ER Course This patient is well-known to [facility]. I have see this patient in the past. She has a history of lupus. She refuses to see the appropriate specialists to include ophthalmology and rheumatology. The patient does have a significant iron deficiency anemia. The patient's hemoglobin does not meet criteria for transfusion. The patient was asking for a blood transfusion. However, do not feel that she needs this. I suspect this patient has sickle cell trait and does not have sickle cell disease. I reviewed the patient's laboratory history and this appears to be iron deficiency anemia. I did give the patient IV iron sucrose. She states that she does have oral iron tablets at home. She states that she does take oral iron tablets but feels that this is not working for her. I suspect medication noncompliance. She does have conjunctivitis/retinitis with corneal ulcer of her left eye. I'm going to place the patient on topical Ilotycin as a precaution. She did start her oral prednisone which is how she usually handles her scleritis flares. I impressed upon the patient importance of following up closely with an carrier washer today to possible get corneal debridement and for bandage contact lens. She indicated understanding and intention to do so. The patient is given close return precautions and follow-up instructions. She has been educated extensively on the importance of appropriate follow-up with the appropriate specialist. Please see CBC and the electronic medical record. Last Vital Signs Date Time Temp Pulse Resp B/P (MAP) Pulse Ox O2 Delivery O2 Flow Rate FiO2 05/28/18 07:24 87 18 Room Air 05/28/18 07:14 98.1 114/65 99 Status: improved Disposition: HOME, SELF-CARE Condition: Improved Kathi Schmid DO May 28, 2018 07:34
[2018-05-28] MEDS ORDERED: Tetracaine 0.5% Opth 4ml Soln LEFT EYE ONE (08:00)
[2018-05-28] MEDS ORDERED: Fluorescein Strips LEFT EYE ONE (08:00)
[2018-05-28] MEDS ORDERED: NS IVPB ONE (08:15)
[2018-05-28] MEDS ORDERED: IRON SUCROSE IVPB ONE (08:15)
[2018-05-28] MEDS ORDERED: ERYTHROMYCIN3.5 GM LEFT EYE (09:18)
[2018-05-28] MEDS ORDERED: CILOXAN3.5 GM OP (09:22)
[2018-05-28 09:57] VITALS: BP 122/70
[2018-05-28 10:32] VITALS: BP 120/67
--- NOTE | 2018-05-28 10:32 | NUR ---
ER DISCHARGE NOTE: Patient is cleared to be discharged per ERMD, pt is aox4, on room air, with stable vital signs. pt was given dc and prescription instructions, pt was able to verbalize understanding, pt id band and iv site removed without complications. pt is able to ambulate with steady gait. pt took all belongings.
== END 2018-05-28 10:32 | disposition home or self-care (01) ==
LOC: EMR 07:30
DX: M32.9 Systemic lupus erythematosus, unspecified (principal); H10.32 Unspecified acute conjunctivitis, left eye; D50.9 Iron deficiency anemia, unspecified; H16.002 Unspecified corneal ulcer, left eye
CPT/HCPCS: 96365; 99284; J1756

== ENCOUNTER 2018-07-04 15:00 | Emergency (ER) | payer MEDICAID, OTHER ==
[~2018-07-04] VITALS: Ht 149.9 cm; Wt 45.4 kg
[~2018-07-04 15:00] MED LIST changes: +CILOXAN3.5 GM OP; +ERYTHROMYCIN3.5 GM LEFT EYE; +NKM
[2018-07-04 15:14] VITALS: BP 98/60
--- NOTE | 2018-07-04 15:19 | NUR ---
ED Nurse Note: Pt ambulated to ED from home c/o generalized pain in legs/arms joint and bone pain 12/03. Pt reports hx of lupus. VSS Pt A&Ox4. Denies chest pain or sob. Pt has an eyepatch on right eye, eyelid is swollen and has a rash, eye appears red with clear drainage, denies traumatic injury.
--- NOTE | 2018-07-04 15:28 | Emergency Room Report ---
History of Present Illness General Chief Complaint: General Complaint Source: Patient, Medical Record Present Illness HPI Patient is a 32-year-old female presented after increased generalized joint aches as well as right-sided eye discomfort. Patient prior history of lupus. She reports having previously been on prednisone. She states she took prednisone 20 mg yesterday but had run out of her medications. She does not take prednisone regularly however when she has flareups of her lupus she does initiate this. Patient had joint pain to multiple joints. She reports having prior history of anemia which she had previously been prescribed iron for but takes once again intermittently. Patient reportedly has increased right eye discomfort. She had not been vomiting or having any diarrhea. She denies being . Allergies: Coded Allergies: No Known Allergies (Unverified , 05/28/18) Patient History Past Medical History: see triage record Last Menstrual Period: 07/01/2018 Now: No : 2 Para: 2 Reviewed Nursing Documentation: PMH: Agreed; PSxH: Agreed Nursing Documentation-PMH Hx Cardiac Problems: No Hx Hypertension: No Hx Pacemaker: No Hx Asthma: No Hx COPD: No Hx Diabetes: No Hx Cancer: No Hx Gastrointestinal Problems: No Hx Dialysis: No Hx Neurological Problems: No - ARTHRITIS, LUPUS Hx Cerebrovascular Accident: No Hx Seizures: No Review of Systems All Other Systems: negative except mentioned in HPI Physical Exam Vital Signs Date Time Temp Pulse Resp B/P (MAP) Pulse Ox O2 Delivery O2 Flow Rate FiO2 07/04/18 15:02 98.6 86 18 98 Room Air 07/04/18 15:14 98/60 Sp02 EP Interpretation: reviewed, normal General Appearance: normal inspection, well appearing, no apparent distress, alert, GCS 15, Chronically Ill Head: atraumatic Eyes: bilateral eye other - no fluorescein uptake ENT: normal ENT inspection, hearing grossly normal, normal voice Neck: normal inspection, full range of motion, supple, no bony tend Respiratory: normal inspection, lungs clear, normal breath sounds, no respiratory distress, no retraction, no wheezing Cardiovascular #1: regular rate, rhythm, no edema Gastrointestinal: normal inspection, normal bowel sounds, non tender, soft, no guarding, no hernia Genitourinary: no CVA tenderness Musculoskeletal: normal inspection, back normal, normal range of motion Neurologic: normal inspection, alert, oriented x3, responsive, instruments sales representative III-XII nml as tested, motor strength/tone normal, speech normal Psychiatric: normal inspection, judgement/insight normal, mood/affect normal Skin: normal inspection, normal color, no rash Medical Decision Making Diagnostic Impression: Primary Impression: Chronic anterior uveitis Additional Impressions: Chronic pain Iron deficiency Lupus ER Course Patient presented for eye pain and joint pain. Differential diagnosis include was not limited to uveitis, corneal ulcer, Nicolette's syndrome among others. Patient has a benign exam and does not appear to require any further imaging or laboratory testing at this time. Patient was noted to have a long-standing history of lupus. Patient's symptoms are appear consistent with an anterior uveitis. She was noted to have some perilimbal injection. Intraocular pressure was 15. Patient was given oral prednisone as well as Toradol for pain. Patient was noted to have prior history of iron deficiency anemia and intermittently takes her iron. Patient was advised to follow-up with ophthalmology for recheck of her eye due to Visual changes. She was started on topical steroids. Fluorescein eye exam with slit lamp showed no evidence of dendritic lesions or corneal ulcers. Patient has apparently had this intermittently for many times in the past. She has previously been instructed to follow-up with ophthalmology and was once again advised to follow-up with ophthalmology and to see a waterway traffic checker.Patient appears to be stable for outpatient management.Patient advised to return for any worsening of condition or other concerns. Labs Test 07/04/18 16:15 Urine HCG, Qualitative Negative (NEGATIVE) Last Vital Signs Date Time Temp Pulse Resp B/P (MAP) Pulse Ox O2 Delivery O2 Flow Rate FiO2 07/04/18 15:14 98.6 86 18 98/60 98 Room Air Status: improved Disposition: HOME, SELF-CARE Condition: Stable Scripts Prednisolone Acetate/Pf (Prednisolone Acet 1% Eye Drop) 5 Ml Drops.susp 1 DROP OP BID for 3 Days, #5 ML Prov: Chris Merrill MD 07/04/18 Prednisone* (PREDNISONE*) 20 Mg Tablet 40 MG ORAL DAILY, #8 TAB Prov: Chris Merrill MD 07/04/18 Ferrous Sulfate* (FERROUS SULFATE*) 325 Mg Tablet 325 MG ORAL DAILY, #30 TAB 0 Refills Prov: Chris Merrill MD 07/04/18 Referrals: OTHER,REFERRING (PCP) Chris Merrill MD July 04, 2018 15:28
[2018-07-04] MEDS ORDERED: Fluorescein Strips RIGHT EYE ONE (15:30)
[2018-07-04] MEDS ORDERED: Tetracaine 0.5% Opth 4ml Soln RIGHT EYE ONE (15:30)
--- NOTE | 2018-07-04 15:30 | NUR ---
ED Nurse Note: Dr Merrill at bedside testing ocular pressure and for any debri in R eye. pt tolerated well.
[2018-07-04] MEDS ORDERED: PREDNISONE20 MG ORAL ×2 (15:33→15:59)
[2018-07-04] MEDS ORDERED: CYCLOGYL2 M1 OP (15:33)
[2018-07-04] MEDS ORDERED: FERROUS SULFAT325 MG ORAL (15:59)
[2018-07-04] MEDS ORDERED: PREDNISOLONE ACE5 M1 OP (15:59)
[2018-07-04] MEDS: Ketorolac 60mg Inj IM ONE ×2 (16:30→16:34)
[2018-07-04 17:00] VITALS: BP 98/60
--- NOTE | 2018-07-04 17:00 | NUR ---
ER DISCHARGE NOTE: Patient is cleared to be discharged per ERMD, pt is aox4, on room air, with stable vital signs. pt was given dc and prescription instructions, pt was able to verbalize understanding, pt id band removed. pt is able to ambulate with steady gait. pt took all belongings.
== END 2018-07-04 17:00 | disposition home or self-care (01) ==
LOC: EMR 15:15
DX: H20.10 Chronic iridocyclitis, unspecified eye (principal); G89.29 Other chronic pain; E61.1 Iron deficiency; M32.9 Systemic lupus erythematosus, unspecified; M19.90 Unspecified osteoarthritis, unspecified site
CPT/HCPCS: 81025; 96372; 99283; J7512

== ENCOUNTER 2018-08-23 07:05 | Emergency (ER) | payer OTHER ==
[~2018-08-23] VITALS: Ht 149.9 cm; Wt 45.4 kg
[~2018-08-23 07:05] MED LIST changes: +CYCLOGYL2 M1 OP; +PREDNISOLONE ACE5 M1 OP
[2018-08-23] MEDS ORDERED: Ketorolac 60mg Inj IM ONE (07:30)
--- NOTE | 2018-08-23 07:33 | Emergency Room Report ---
History of Present Illness General Chief Complaint: General Complaint Source: Patient, Medical Record Present Illness HPI Patient presents with complaints of body aches and joint pain Reports that she feels like she is having a lupus flare Reports that she feels this is likely secondary to change in weather Denies any chest pain or shortness of breath denies any vomiting or diarrhea Patient also reports continued discomfort to the right eye With increased irritation Reports that she saw an senior care assistant, however is getting a referral to an tsa screener Denies any recent fevers denies any redness or swelling Denies any lightheadedness Allergies: Coded Allergies: No Known Allergies (Unverified , 05/28/18) Patient History Past Medical History: see triage record Pertinent Family History: none Last Menstrual Period: 08/18/18 Reviewed Nursing Documentation: PMH: Agreed; PSxH: Agreed Nursing Documentation-PMH Past Medical History: No History, Except For Hx Cardiac Problems: No Hx Hypertension: No Hx Pacemaker: No Hx Asthma: No Hx COPD: No Hx Diabetes: No Hx Cancer: No Hx Gastrointestinal Problems: No Hx Dialysis: No Hx Neurological Problems: No - ARTHRITIS, LUPUS Hx Cerebrovascular Accident: No Hx Seizures: No Review of Systems All Other Systems: negative except mentioned in HPI Physical Exam Vital Signs Date Time Temp Pulse Resp B/P (MAP) Pulse Ox O2 Delivery O2 Flow Rate FiO2 08/23/18 07:14 98.4 83 18 99/69 (79) 98 Room Air Sp02 EP Interpretation: reviewed, normal General Appearance: well appearing, no apparent distress Head: normocephalic, atraumatic Eyes: right eye other - Patient does have some evidence of increased irritation to the upper and lower eyelids; bilateral eye PERRL, bilateral eye EOMI ENT: hearing grossly normal, normal pharynx, TMs + canals normal, uvula midline Neck: full range of motion, no meningismus Respiratory: lungs clear, no respiratory distress, no accessory muscle use Cardiovascular #1: normal peripheral pulses, regular rate, rhythm, no edema, no murmur Gastrointestinal: non tender, soft, no mass, no organomegaly, non-distended Musculoskeletal: normal inspection, other - Moving all extremities without focal deficit Neurologic: oriented x3, responsive, motor strength/tone normal, sensory intact Psychiatric: mood/affect normal Skin: other Lymphatic: normal inspection, no adenopathy Medical Decision Making Diagnostic Impression: Primary Impression: Myalgia ER Course Given the history and presentation multiple differentials in consideration including but not limited to vascular pathology, metabolic, neurological differentials Patient's examination reveals patient resting comfortably no obvious acute distress and hemodynamically stable Benign medical screening evaluation Patient also reports recent follow-up with her senior care assistant earlier this month At the time of disposition patient reports that she was initially here for her eye discomfort Patient has had similar discomfort several times, and reports that she is usually checked for a scratch No obvious conjunctival erythema was seen There was no report of foreign body contacts or other indication for further evaluation Patient has received Toradol in the past with some improvement therefore this was again attempted Patient has a fairly chronic pathology with her eye complaint as well, and attempting outpatient follow-up Requesting eyedrops and muscle relaxers Patient was encouraged to follow-up with her primary moshgiach Upon discussing the need for appropriate follow-up for further prescriptions and medication patient becomes extremely upset Reports that she feels like she is being discriminated against Requests everyone's name who has been in contact with her today Patient also reports that she is upset regarding receiving our safe pain medication prescribing campaign pamphlet Reports that she is not a ' drug addict' She was reassured that we are not in any way insinuating that, she was merely provided information why it is important for the primary physician to be involved with her care Patient continues to be upset and unfortunately further discussion does not appear to provide any further support for her Patient verbalized missing multiple appointments and lack of appropriate follow- up, and was encouraged to make improved attempts with this as her underlying condition can lead to significant vascular disease and multiple comorbidities Last Vital Signs Date Time Temp Pulse Resp B/P (MAP) Pulse Ox O2 Delivery O2 Flow Rate FiO2 08/23/18 07:14 98.4 83 18 99/69 (79) 98 Room Air Status: unchanged Disposition: HOME, SELF-CARE Condition: Stable Additional Instructions: Patient is provided with the discharge instructions notified to follow up with primary doctor in the next 2-3 days otherwise return to the er with any worsening symptoms. Please note that this report is being documented using [employer] technology. This can lead to erroneous entry secondary to incorrect interpretation by the dictating instrument. London Holley DO Aug 23, 2018 07:33
[2018-08-23 07:37] VITALS: BP 99/69
--- NOTE | 2018-08-23 07:38 | NUR ---
ED Nurse Note: Patient walked in to ER c/o general body pain 10/10 due to lupus flare. pt aao x4 and ambulatory. skin clean and intact and Rt eye is covered with dressing. pt is comfortable and talking on the phone.
--- NOTE | 2018-08-23 07:53 | NUR ---
ED Nurse Note: Patient requested for pain medication besides Toradol. pt was asked to wait for the medication to be effective but refused. pt requested to speak to KAREEN.
--- NOTE | 2018-08-23 07:56 | NUR ---
ED Nurse Note: ERMD at bedside.
--- NOTE | 2018-08-23 08:04 | NUR ---
ED Nurse Note: Patient started cursing "I don't give a shit. This is fucking joke. I need pain medication." Pt threw the pain management clinic referral to nurse and stated "I never got this shit before. Why am I getting this today? Don't treat me like I am a fucking drug seeker. I will file complain on everyone of you. I need everyone's name."
--- NOTE | 2018-08-23 08:06 | NUR ---
ED Nurse Note: pt refused to verbalize pain level for reassessment.
--- NOTE | 2018-08-23 08:08 | NUR ---
ED Nurse Note: doctor, cn, assigned nurse names given. pt standing at the discharge desk and yelling and cursing. pt was told that nurse will remove the id band and pt refused. "I am not fucking signing on any damn papers and no one takes anything from me." pt refused to sign on discharge paper but she took discharge paper and pain management referral. pt has no iv access. pt took all her belongings and ambulated out with steady gait.
== END 2018-08-23 08:08 | disposition home or self-care (01) ==
LOC: EMR 08:08
DX: M79.10 Myalgia, unspecified site (principal); M19.90 Unspecified osteoarthritis, unspecified site; M32.9 Systemic lupus erythematosus, unspecified
CPT/HCPCS: 99283

== ENCOUNTER 2018-08-25 08:42 | Emergency (ER) | payer OTHER ==
[~2018-08-25] VITALS: Ht 149.9 cm; Wt 45.4 kg
[2018-08-25] MEDS ORDERED: Tetracaine 0.5% Opth 4ml Soln RIGHT EYE ONE (09:00)
[2018-08-25] MEDS ORDERED: Fluorescein Strips RIGHT EYE ONE (09:00)
[2018-08-25 09:05] VITALS: BP 111/65
--- NOTE | 2018-08-25 09:59 | Emergency Room Report ---
History of Present Illness General Chief Complaint: Eye Problems Source: Patient, Medical Record Present Illness HPI This patient is well-known to [facility]. She has a history of lupus and a history of recurrent lupus uveitis. The patient states that for the past 3 days she has had progressively worsening right eye pain. She states that her vision has become blurry over the past 24 hours. She has also had some aches and pains consistent with a flare of her lupus. She states she has had some mucus discharge from her eye. She denies injury to her eye. She states that she is supposed to be on Plaquenil but does not like to be on medications so does not take the Plaquenil. She had been intermittently on prednisone but now does not like taking prednisone either for concern of long- term side effects. The patient has a history of medication noncompliance and is trying "natural "remedies. The patient has no other complaints at this time. Allergies: Coded Allergies: No Known Allergies (Unverified , 05/28/18) Patient History Past Medical History: see triage record, other - Lupus Social History: Denies: smoking, alcohol use, drug use Last Menstrual Period: 08/18/18 Reviewed Nursing Documentation: PMH: Agreed; PSxH: Agreed Nursing Documentation-PMH Past Medical History: No History, Except For Hx Cardiac Problems: No Hx Hypertension: No Hx Pacemaker: No Hx Asthma: No Hx COPD: No Hx Diabetes: No Hx Cancer: No Hx Gastrointestinal Problems: No Hx Dialysis: No Hx Neurological Problems: No - ARTHRITIS, LUPUS Hx Cerebrovascular Accident: No Hx Seizures: No Review of Systems All Other Systems: negative except mentioned in HPI Physical Exam Vital Signs Date Time Temp Pulse Resp B/P (MAP) Pulse Ox O2 Delivery O2 Flow Rate FiO2 08/25/18 08:53 98.8 87 18 109/61 (77) 99 Room Air Sp02 EP Interpretation: reviewed, normal General Appearance: no apparent distress, alert, GCS 15, non-toxic Head: normocephalic, atraumatic Eyes: right eye other - [id number] circular fluorescin uptake directly over the visual axis. ENT: hearing grossly normal, normal pharynx, no angioedema, normal voice Neck: normal inspection, full range of motion Respiratory: no respiratory distress, no retraction, no accessory muscle use, speaking full sentences Rectal: deferred Musculoskeletal: back normal, gait/station normal, normal range of motion Neurologic: alert, oriented x3, responsive, motor strength/tone normal, sensory intact, speech normal Psychiatric: judgement/insight normal, memory normal, mood/affect normal, no suicidal/homicidal ideation Medical Decision Making Diagnostic Impression: Primary Impression: Chronic anterior uveitis Additional Impression: Lupus (systemic lupus erythematosus) ER Course This patient has known anterior uveitis from lupus. The patient is noncompliant with it with this regimen. I have discussed this with her multiple episodes. However, she continues to state that she does not want to undergo typical therapy and wants to use natural therapy. Regardless, the patient has a significant uveitis on the right eye as seen on uptake under Whelan lamp and fluorescin. I was able to contact Robert Gonzalez, stock cutter , who requested that this patient to be sent to his office for further evaluation and treatment. The slight patient will likely need steroids and topical antibiotics for the large uveitis that is developed on her right eye. I will defer all further treatment and evaluation to Dr. Gonzalez. Last Vital Signs Date Time Temp Pulse Resp B/P (MAP) Pulse Ox O2 Delivery O2 Flow Rate FiO2 08/25/18 09:05 98.8 84 20 111/65 99 Room Air Disposition: HOME, SELF-CARE Condition: Serious Referrals: [facility],REFERRING (PCP) Additional Instructions: Be at Dr. Javier Gonzalez's office by 11am this morning. Kathi Schmid DO Aug 25, 2018 09:59
[2018-08-25 10:05] VITALS: BP 121/74
[2018-08-25 10:06] VITALS: BP 121/74
== END 2018-08-25 10:06 | disposition home or self-care (01) ==
LOC: EMR 08:52
DX: H20.11 Chronic iridocyclitis, right eye (principal); M32.9 Systemic lupus erythematosus, unspecified; M19.90 Unspecified osteoarthritis, unspecified site
CPT/HCPCS: 99282

== ENCOUNTER 2018-09-01 15:04 | Emergency (ER) | payer OTHER ==
[~2018-09-01] VITALS: Ht 152.4 cm; Wt 45.4 kg
[2018-09-01 15:07] VITALS: BP 106/68
--- NOTE | 2018-09-01 15:17 | NUR ---
ED Nurse Note: PT CAME IN DUE TO LEFT EYE IRRITATION SINCE YESTERDAY. PT STATES IT'S FEELS SCRATCHY AND THERE WAS GREEN DISCHARGE FROM IT. PT IS UNABLE TO OPEN HER EYES AND IS REDDENED AT THIS TIME. NO ACTIVE BLEEDING. AAOX 4, AMBULATORY.
--- NOTE | 2018-09-01 15:24 | NUR ---
ED Nurse Note: PT REFUSED VISUAL ACUITY TEST AND STATES SHE CAN'T OPEN HER EYES IF LIGHTS ARE ON.
[2018-09-01] MEDS ORDERED: Fluorescein Strips LEFT EYE ONE (15:45)
[2018-09-01] MEDS ORDERED: Tetracaine 0.5% Opth 4ml Soln LEFT EYE ONE ×2 (15:45→16:30)
--- NOTE | 2018-09-01 16:11 | Emergency Room Report ---
History of Present Illness General Chief Complaint: Eye Problems Source: Patient Present Illness HPI 32-year-old female presents to the emergency department complaining of 10 out of 10 severity pain, photosensitivity, erythema and increased lacrimation with scratching sensation in the left eye since yesterday. Patient reports that she recently had similar symptoms in the right eye for which she was evaluated by beam machine operator and is being sent to a cornea specialist for patient frequently having corneal ulcers. Patient denies contact lens use she denies false eyelash use or trauma to the eye. Denies: Eye Discharge, Loss of vision, Floaters, Flashing lights, Diplopia/blurry vision. Pt. denies MENDIETA . Pt. reports hx of Lupus and frequent eye symptoms. Allergies: Coded Allergies: No Known Allergies (Unverified , 05/28/18) Patient History Past Medical History: see triage record Past Surgical History: none Pertinent Family History: none Last Menstrual Period: 08/14/18 Now: No Reviewed Nursing Documentation: PMH: Agreed; PSxH: Agreed Nursing Documentation-PMH Past Medical History: No History, Except For Hx Cardiac Problems: No Hx Hypertension: No Hx Pacemaker: No Hx Asthma: No Hx COPD: No Hx Diabetes: No Hx Cancer: No Hx Gastrointestinal Problems: No Hx Dialysis: No Hx Neurological Problems: No - ARTHRITIS, LUPUS Hx Cerebrovascular Accident: No Hx Seizures: No Review of Systems All Other Systems: negative except mentioned in HPI Physical Exam Vital Signs Date Time Temp Pulse Resp B/P (MAP) Pulse Ox O2 Delivery O2 Flow Rate FiO2 09/01/18 15:07 98.1 95 20 106/68 99 Room Air Sp02 EP Interpretation: reviewed, normal General Appearance: no apparent distress, alert, GCS 15, non-toxic, mild distress Head: normocephalic, atraumatic Eyes: left eye photophobia, left eye other - conjunctival erythema/injection, increased lacrimation, no obvious fb on lid flip. moderate corneal ulcer noted just over the pupil. positive relief with tetracaine; bilateral eye normal inspection, bilateral eye PERRL, bilateral eye EOMI, bilateral eye visual acuity ENT: hearing grossly normal, normal voice Neck: full range of motion Respiratory: lungs clear, normal breath sounds, speaking full sentences Cardiovascular #1: regular rate, rhythm Musculoskeletal: back normal, gait/station normal, normal range of motion, non- tender Neurologic: alert, oriented x3, responsive, motor strength/tone normal, sensory intact, normal gait, speech normal, grossly normal Psychiatric: judgement/insight normal Lymphatic: no adenopathy Medical Decision Making PA Attestation Dr. Holley is my supervising Physician whom patient management has been discussed with. Diagnostic Impression: Primary Impression: Conjunctivitis Qualified Codes: H10.32 - Unspecified acute conjunctivitis, left eye Additional Impression: Corneal ulcer Qualified Codes: H16.002 - Unspecified corneal ulcer, left eye ER Course 32-year-old female presents to the emergency department complaining of 10 out of 10 severity pain, photosensitivity, erythema and increased lacrimation with scratching sensation in the left eye since yesterday. Patient reports that she recently had similar symptoms in the right eye for which she was evaluated by beam machine operator and is being sent to a cornea specialist for patient frequently having corneal ulcers. Patient denies contact lens use she denies false eyelash use or trauma to the eye. Denies: Eye Discharge, Loss of vision, Floaters, Flashing lights, Diplopia/blurry vision. Pt. denies MENDIETA . Pt. reports hx of Lupus and frequent eye symptoms. Ddx considered but are not limited to: corneal abrasion, acute glaucoma, globe rupture, FB, Corneal Ulcer, conjunctivitis. Iridis Vital signs: are WNL, pt. is afebrile H&PE are most consistent with: corneal ulcer and conjunctivitis ORDERS: -Tetracaine and Fluorescein Stain of the Left eye: -Increase fluorescein uptake moderately over the pupil, Negative Jesse sign. Pt. had positive relief of pain with tetracaine drops. there was negative evidence of Fb, deep ulcer, or rupture. ED INTERVENTIONS: Tylenol PO DISCHARGE: At this time pt. is stable for d/c to home. Will provide printed patient care instructions, and any necessary prescriptions. Care plan and follow up instructions have been discussed with the patient prior to discharge. . Last Vital Signs Date Time Temp Pulse Resp B/P (MAP) Pulse Ox O2 Delivery O2 Flow Rate FiO2 09/01/18 15:07 98.1 95 20 106/68 (81) 99 Room Air Disposition: HOME, SELF-CARE Condition: Stable Scripts Ketotifen Fumarate (KETOTIFEN FUMARATE) 5 Ml Drops 1 DROP OP Q6HR for eye pain, #5 ML Prov: Albertina Cazares 09/01/18 Ofloxacin (OFLOXACIN) 5 Ml Drops 2 DROP OT TID for 7 Days, #5 ML Prov: Albertina Cazares 09/01/18 Departure Forms: Return to Work Return to Work Date: Sep 05, 2018 Return to Full Activity: Sep 05, 2018 Patient Instructions: Bacterial Conjunctivitis, [id number], Corneal Ulcer Additional Instructions: Take medications as directed. Follow up with a Hanger Off in 3 days, even if your symptoms have resolved. --Please review list of primary care clinics, if you do not already have a primary care provider Return sooner to ED if new symptoms occur, or current symptoms become worse. - Please note that this Emergency Department Report was dictated using [place] [employer] planner technology software, occasionally this can lead to erroneous entry secondary to interpretation by the dictation equipment. Albertina Cazares Sep 01, 2018 16:11
[2018-09-01] MEDS ORDERED: OFLOXACIN5 ML OT (16:13)
[2018-09-01] MEDS ORDERED: KETOTIFEN FUMARA5 ML OP (16:13)
[2018-09-01 17:06] VITALS: BP 115/76
--- NOTE | 2018-09-01 17:06 | NUR ---
ER DISCHARGE NOTE: Patient is cleared to be discharged per PA, pt is aox4, on room air, with stable vital signs. pt was given dc and prescription instructions, pt was able to verbalize understanding, pt id band removed without complications. pt is able to ambulate with steady gait. pt took all belongings and left with her daughter.
== END 2018-09-01 17:06 | disposition home or self-care (01) ==
LOC: EMR 15:49
DX: H10.32 Unspecified acute conjunctivitis, left eye (principal); H16.002 Unspecified corneal ulcer, left eye; M19.90 Unspecified osteoarthritis, unspecified site
CPT/HCPCS: 99283

== ENCOUNTER 2018-09-12 23:47 | Emergency (ER) | payer OTHER ==
[~2018-09-12] VITALS: Ht 149.9 cm; Wt 45.4 kg
[~2018-09-12 23:47] MED LIST changes: +KETOTIFEN FUMARA5 ML OP; +OFLOXACIN5 ML OT
[2018-09-13 00:05] VITALS: BP 102/71
--- NOTE | 2018-09-13 00:05 | NUR ---
ED Nurse Note: Patient presents with complaints of left eye scratchiness and discomfort. Reports reduced visual acuity and blurriness. Patient has history of lupus.
--- NOTE | 2018-09-13 00:38 | NUR ---
ED Nurse Note: ERMD at bedside,
[2018-09-13] MEDS ORDERED: Tetracaine 0.5% Opth 4ml Soln LEFT EYE ONE (00:45)
[2018-09-13] MEDS ORDERED: Fluorescein Strips LEFT EYE ONE (00:45)
[2018-09-13] MEDS ORDERED: ACETAMINOPHEN-1 EAC1 ORAL (01:17)
[2018-09-13] MEDS ORDERED: CILOXAN5 ML OP (01:17)
[2018-09-13 01:40] VITALS: BP 135/82
--- NOTE | 2018-09-13 01:40 | NUR ---
ELOPEMENT: Patient left without discharge paperwork.
--- NOTE | 2018-09-15 07:55 | Emergency Room Report ---
History of Present Illness General Chief Complaint: Eye Problems Present Illness HPI Patient is a 33-year-old female with prior history of autoimmune disease who presented after increased left eye discomfort. Patient recently been seen by ophthalmology. She was noted to have increased foreign body sensation to the left eye. She states that she had recently had ophthalmology procedure to the right eye. She has an appointment with a corneal specialist. Patient was started on topical antibiotics. Allergies: Coded Allergies: No Known Allergies (Unverified , 05/28/18) Patient History Past Medical History: see triage record Last Menstrual Period: 09/12/18 Now: No : 2 Para: 2 Reviewed Nursing Documentation: PMH: Agreed; PSxH: Agreed Nursing Documentation-PMH Hx Cardiac Problems: No Hx Hypertension: No Hx Pacemaker: No Hx Asthma: No Hx COPD: No Hx Diabetes: No Hx Cancer: No Hx Gastrointestinal Problems: No Hx Dialysis: No Hx Neurological Problems: Yes - lupus; RA; fibromyalgia Hx Cerebrovascular Accident: No Hx Seizures: No Review of Systems All Other Systems: negative except mentioned in HPI Physical Exam Vital Signs Date Time Temp Pulse Resp B/P (MAP) Pulse Ox O2 Delivery O2 Flow Rate FiO2 09/13/18 00:05 98.4 82 102/71 (81) 94 Room Air 09/13/18 01:40 16 General Appearance: well appearing, no apparent distress, alert, GCS 15 Head: normocephalic, atraumatic Eyes: left eye PERRL, left eye fluoroscene uptake - large area of fluorescein uptake to lower portion of eye. ENT: hearing grossly normal, normal voice Neck: full range of motion, supple Respiratory: no respiratory distress, speaking full sentences Gastrointestinal: normal inspection Musculoskeletal: decreased range of mation - hand joints with slight deformity Neurologic: normal inspection, alert, oriented x3, responsive, normal gait Psychiatric: mood/affect normal Skin: no rash Medical Decision Making Diagnostic Impression: Primary Impression: Corneal ulcer of left eye ER Course Patient presented for foreign body sensation to the left eye. Differential diagnosis include is not limited to corneal abrasion, corneal ulcer, keratitis, iritis among others. Patient was noted to have prior history of autoimmune disease. Patient's currently scheduled for appointment with ophthalmology. She is given prescription for topical antibiotics. Patient's visual acuity appears to be preserved. Her left eye was noted to have significant corneal ulcer. She was started on topical Ciloxan. She was advised to follow-up with ophthalmology as soon as possible. Last Vital Signs Date Time Temp Pulse Resp B/P (MAP) Pulse Ox O2 Delivery O2 Flow Rate FiO2 09/13/18 01:40 98.2 70 16 135/82 99 09/13/18 00:05 Room Air Status: improved Disposition: HOME, SELF-CARE Condition: Improved Scripts Ciprofloxacin HCl (Ciloxan) 5 Ml Drops 2 DROP OP FOUR TIMES A DAY for 7 Days, #5 ML Prov: Chris Merrill MD 09/13/18 Acetaminophen With Codeine (T#3) (TYLENOL #3 TAB*) Y Tab 1 TAB ORAL Q4H PRN for For Pain, #14 TAB Prov: Chris Merrill MD 09/13/18 Referrals: [facility],REFERRING (PCP) Patient Instructions: Corneal Ulcer Chris Merrill MD Sep 15, 2018 07:55
== END 2018-09-13 01:40 | disposition home or self-care (01) ==
LOC: EMR 09-13 01:05
DX: H16.002 Unspecified corneal ulcer, left eye (principal); M06.9 Rheumatoid arthritis, unspecified; M79.7 Fibromyalgia
CPT/HCPCS: 99282

== ENCOUNTER 2018-10-22 22:43 | Emergency (ER) | payer OTHER ==
[~2018-10-22] VITALS: Ht 149.9 cm; Wt 40.8 kg
[~2018-10-22 22:43] MED LIST changes: +CILOXAN5 ML OP
--- NOTE | 2018-10-22 22:58 | NUR ---
ED Nurse Note: walk-in patient presents with complaints of bilateral eye irritations and sensitivity to light. Patient is unable to undergo visual acuity testing due to light sensitivity.
[2018-10-22 22:59] VITALS: BP 115/80
[2018-10-22] MEDS ORDERED: Fluorescein Strips BOTH EYES ONE (23:15)
[2018-10-22] MEDS ORDERED: HYDROcodone/Acetamin 5/325 tab ORAL ONE (23:15)
[2018-10-22] MEDS ORDERED: HYDROCODON-ACE1 EA15 ORAL (23:22)
[2018-10-22] MEDS ORDERED: IBUPROFEN600 MG ORAL (23:22)
--- NOTE | 2018-10-22 23:22 | Emergency Room Report ---
History of Present Illness General Chief Complaint: Eye Problems Source: Patient Present Illness HPI This is a 33-year-old female with a history of lupus and sickle cell. She also has a history of chronic corneal ulcer. She says she saw an railroad watchman already. Currently taking antibiotics and antibiotic eyedrops. She presents with chief complaint of bilateral eye pain with foreign body sensation. Also with headache. Pain is 9 out of 10. Worse with lights. No nausea no vomiting. No fever chills but denies any other complaint. Allergies: Coded Allergies: No Known Allergies (Unverified , 05/28/18) Patient History Past Medical History: see triage record, old chart reviewed Past Surgical History: other Pertinent Family History: none Social History: Denies: smoking Last Menstrual Period: 10/08/18 Now: No Immunizations: other Reviewed Nursing Documentation: PMH: Agreed; PSxH: Agreed Nursing Documentation-PMH Hx Cardiac Problems: No Hx Hypertension: No Hx Pacemaker: No Hx Asthma: No Hx COPD: No Hx Diabetes: No Hx Cancer: No Hx Gastrointestinal Problems: No Hx Dialysis: No Hx Cerebrovascular Accident: No Hx Seizures: No Review of Systems Eye: Reports: eye pain; Denies: blurred vision ENT: Denies: ear pain, nose congestion, throat swelling Respiratory: Denies: cough, shortness of breath Cardiovascular: Denies: chest pain, palpitations Gastrointestinal: Denies: abdominal pain, diarrhea, nausea, vomiting Musculoskeletal: Denies: back pain, joint pain Skin: Denies: rash Neurological: Reports: headache; Denies: numbness Endocrine: Denies: increased thirst, increased urine Hematologic/Lymphatic: Denies: easy bruising All Other Systems: negative except mentioned in HPI Physical Exam Vital Signs Date Time Temp Pulse Resp B/P (MAP) Pulse Ox O2 Delivery O2 Flow Rate FiO2 10/22/18 22:49 98.4 83 18 115/80 (92) 98 Room Air Vitals normal Sp02 EP Interpretation: reviewed, normal General Appearance: well appearing, no apparent distress, alert Head: normocephalic, atraumatic Eyes: bilateral eye PERRL, bilateral eye EOMI, bilateral eye other - Bilateral cornea with large ulcer. No foreign body. ENT: hearing grossly normal, normal pharynx Neck: full range of motion, supple, no meningismus Respiratory: chest non-tender, lungs clear, normal breath sounds Cardiovascular #1: regular rate, rhythm, no murmur Gastrointestinal: normal bowel sounds, non tender, no mass, no organomegaly, no bruit, non-distended Musculoskeletal: back normal, gait/station normal, normal range of motion Psychiatric: mood/affect normal Medical Decision Making Diagnostic Impression: Primary Impression: Corneal ulcer of both eyes Additional Impression: Headache Qualified Codes: R51 - Headache ER Course Patient with corneal ulcer. She is already being followed by railroad watchman. No foreign body. Will discharge home. Last Vital Signs Date Time Temp Pulse Resp B/P (MAP) Pulse Ox O2 Delivery O2 Flow Rate FiO2 10/22/18 22:59 98.4 82 18 115/80 98 Room Air Status: improved Disposition: HOME, SELF-CARE Condition: Stable Scripts Ibuprofen* (MOTRIN*) 600 Mg Tablet 600 MG ORAL THREE TIMES A DAY, #30 TAB 0 Refills Prov: Costa Roy MD 10/22/18 Hydrocodone/Acetaminophen 5-325* (HYDROCODONE/ACETAMINOPHEN 5-325*) 1 Each Tablet 1 TAB ORAL Q6H PRN for For Pain, #10 TAB 0 Refills Prov: Costa Roy MD 10/22/18 Additional Instructions: Follow-up with your railroad watchman as scheduled. Return if symptoms worsen. Costa Roy MD Oct 22, 2018 23:22
[2018-10-22 23:27] VITALS: BP 115/80
--- NOTE | 2018-10-22 23:27 | NUR ---
ED Nurse Note: Patient cleared for discharge by ERMD, Patient tolerated medication well. patient verbalized understanding of discharge instructions. ID band removed, IV removed. Patient departed with all belonings accompanied by significant other and daughter.
== END 2018-10-22 23:27 | disposition home or self-care (01) ==
LOC: EMR 23:20
DX: H16.003 Unspecified corneal ulcer, bilateral (principal); R51 Headache
CPT/HCPCS: 99282

== ENCOUNTER 2019-11-04 08:19 | Observation (INO) | payer MEDICAID, OTHER ==
[~2019-11-04] VITALS: Ht 149.9 cm; Wt 45.3 kg
--- NOTE | 2019-11-04 08:39 | NUR ---
ED Nurse Note: Pt walked into the ER from home complaining of bilateral leg spams since last night, and right eye pain and sensitivity to light. Pt states she has history of lupus. Pt is alert, oriented x4, respirations even and unlabored on room air, vital signs stable as documented.
[2019-11-04 08:43] VITALS: BP 104/67
[2019-11-04] MEDS ORDERED: NS 250 ML IV ONE (08:43)
[2019-11-04] MEDS ORDERED: Morphine Sulfate 4mg/ml Inj (IV USE ONLY) IVP ONE (08:45)
[2019-11-04] MEDS ORDERED: Fluorescein Strips RIGHT EYE ONE (08:45)
[2019-11-04] MEDS ORDERED: Tetracaine 0.5% Opth 4ml Soln RIGHT EYE ONE ×2 (08:45→10:45)
--- NOTE | 2019-11-04 08:52 | Emergency Room Report ---
History of Present Illness General Chief Complaint: General Complaint Source: Patient Present Illness HPI Patient presents with cramping in her feet and legs. She is a history of lupus. In the past this is been associated with both dehydration and low potassium. She started feeling ill last week. She was having chest pain and reflux symptoms. She has been taking Pepto-Bismol for that. She was not eating well and believes that she became dehydrated. The last couple of days her right eye is also been bothering her. Apparently several months ago she lost vision in that eye and has been blurry since that time. There is been no crusting but it is been tearing. The pain in her extremities is 10/10 at this time and aching and cramping. There is no numbness. She has no medicine for pain at this time. In the past she has been treated with prednisone for her lupus flares but is not taking any medication at this time. Her last menstruation was heavier than usual she does not believe she is at this time. Patient has not been exposed to COVID-19 positive contacts that she knows of. No fevers, chills, sore throat, palpitations, nausea, diarrhea, abdominal pain, shortness of breath, rashes, depression, anxiety, dizziness, headache. The patient was taking sulfasalazine. 3 weeks ago she was started on Plaquenil. Allergies: Coded Allergies: No Known Allergies (Unverified , 05/28/18) COVID-19 Screening Contact w/high risk pt: No Experienced COVID-19 symptoms?: No COVID-19 Testing performed VET ASSISTANT: No Patient History Past Medical History: see triage record Social History: Denies: smoking Social History Narrative came by Reed Now: No Reviewed Nursing Documentation: PMH: Agreed; PSxH: Agreed Nursing Documentation-PMH Past Medical History: No History, Except For Hx Cardiac Problems: No Hx Hypertension: No Hx Pacemaker: No Hx Asthma: No Hx COPD: No Hx Diabetes: No Hx Cancer: No Hx Gastrointestinal Problems: No Hx Dialysis: No Hx Cerebrovascular Accident: No Hx Seizures: No Review of Systems All Other Systems: negative except mentioned in HPI Physical Exam Vital Signs Date Time Temp Pulse Resp B/P (MAP) Pulse Ox O2 Delivery O2 Flow Rate FiO2 11/04/19 08:29 98.2 79 16 105/67 (80) 99 Room Air Sp02 EP Interpretation: reviewed, normal General Appearance: well appearing, no apparent distress, GCS 15 Head: normocephalic Eyes: right eye fluoroscene uptake - Stippling, right eye Scleral Injection - With tearing, right eye other - Corneal opacity and cells ENT: moist mucus membranes Neck: supple Respiratory: lungs clear, normal breath sounds Cardiovascular #1: regular rate, rhythm Cardiovascular #2: 2+ radial (R) Gastrointestinal: normal inspection, normal bowel sounds, non tender, no mass, non-distended Musculoskeletal: back normal, normal range of motion, gait/station normal, tender Neurologic: alert, oriented x3, grossly normal Psychiatric: mood/affect normal Skin: warm/dry, pallor Medical Decision Making Diagnostic Impression: Primary Impression: Symptomatic anemia Additional Impressions: Muscle cramping Hypokalemia Corneal abrasion Qualified Codes: S05.01XA - Injury of conjunctiva and corneal abrasion without foreign body, right eye, initial encounter Corneal opacification Lupus ER Course Patient with a history of lupus presents with leg cramping after being ill for approximately a week and having chest pain and reflux symptoms. Differential includes lupus flare, pericarditis, esophagitis, electrolyte imbalance, iritis, uveitis amongst others. Patient evaluated with EKG, chest x-ray and labs. Patient treated with IV hydration, Zofran, Pepcid and morphine. EKG normal sinus rhythm. Chest x-ray normal. Labs with significant anemia. Sed rate 20. CMP normal except for low potassium. Urinalysis unremarkable. Slit lamp exam right eye: Corneal opacity with cells, fluorescein stippling, relief with tetracaine Potassium administered orally and IV. Initially discussed outpatient treatment and antibiotics for the right eye. Patient states pain is not consistent with lupus flare and declines prednisone. As symptomatic anemia, admit for transfusions. (She states vitamins have never helped her in the past.) Informed consent performed with patient. Transfusion ordered. Contacted Dr. Donna Casey's office to request he consult on the patient. Laboratory Tests Test 11/04/19 09:02 11/04/19 10:00 White Blood Count 5.8 K/UL (4.8-10.8) Red Blood Count 4.56 M/UL (4.20-5.40) Hemoglobin 7.4 G/DL (12.0-16.0) L Hematocrit 27.3 % (37.0-47.0) L Mean Corpuscular Volume 60 FL (80-99) L Mean Corpuscular Hemoglobin 16.3 PG (27.0-31.0) L Mean Corpuscular Hemoglobin Concent 27.3 G/DL (32.0-36.0) L Red Cell Distribution Width 16.8 % (11.6-14.8) H Platelet Count 332 K/UL (150-450) Mean Platelet Volume 6.4 FL (6.5-10.1) L Neutrophils (%) (Auto) % (45.0-75.0) Lymphocytes (%) (Auto) % (20.0-45.0) Monocytes (%) (Auto) % (1.0-10.0) Eosinophils (%) (Auto) % (0.0-3.0) Basophils (%) (Auto) % (0.0-2.0) Differential Total Cells Counted 100 Neutrophils % (Manual) 73 % (45-75) Lymphocytes % (Manual) 18 % (20-45) L Monocytes % (Manual) 8 % (1-10) Eosinophils % (Manual) 1 % (0-3) Basophils % (Manual) 0 % (0-2) Band Neutrophils 0 % (0-8) Platelet Estimate Adequate Platelet Morphology Normal Hypochromasia 2+ Anisocytosis 1+ Microcytosis 2+ Erythrocyte Sedimentation Rate 20 MM/HR (0-20) Prothrombin Time 10.7 SEC (9.30-11.50) Prothrombin Time INR 1.0 (0.9-1.1) Activated Partial Thromboplast Time 25 SEC (23-33) Sodium Level 139 MMOL/L (136-145) Potassium Level 3.3 MMOL/L (3.5-5.1) L Chloride Level 105 MMOL/L (98-107) Carbon Dioxide Level 26 MMOL/L (21-32) Anion Gap 8 mmol/L (5-15) Blood Urea Nitrogen 15 mg/dL (7-18) Creatinine 0.5 MG/DL (0.55-1.30) L Estimated Glomerular Filtration Rate > 60 mL/min (>60) Glucose Level 101 MG/DL (74-106) Calcium Level 8.2 MG/DL (8.5-10.1) L Magnesium Level 2.0 MG/DL (1.8-2.4) Total Bilirubin 0.2 MG/DL (0.2-1.0) Aspartate Amino Transferase (AST) 12 U/L (15-37) L Alanine Aminotransferase (ALT) 13 U/L (12-78) Alkaline Phosphatase 48 U/L (46-116) Total Creatine Kinase 73 U/L (26-308) Troponin I 0.000 ng/mL (0.000-0.056) Pro-B-Type Natriuretic Peptide 35 pg/mL (0-125) Total Protein 8.0 G/DL (6.4-8.2) Albumin 3.8 G/DL (3.4-5.0) Globulin 4.2 g/dL Albumin/Globulin Ratio 0.9 (1.0-2.7) L Urine Color Pale yellow Urine Appearance Clear Urine pH 7 (4.5-8.0) Urine Specific [place] 1.010 (1.005-1.035) Urine Protein Negative (NEGATIVE) Urine Glucose (UA) Negative (NEGATIVE) Urine Ketones 2+ (NEGATIVE) H Urine Blood 3+ (NEGATIVE) H Urine Nitrite Negative (NEGATIVE) Urine Bilirubin Negative (NEGATIVE) Urine Urobilinogen Normal MG/DL (0.0-1.0) Urine Leukocyte Esterase 1+ (NEGATIVE) H Urine RBC 2-4 /HPF (0 - 2) H Urine WBC 2-4 /HPF (0 - 2) Urine Squamous Epithelial Cells Few /LPF (NONE/OCC) Urine Bacteria Few /HPF (NONE) Urine HCG, Qualitative Negative (NEGATIVE) EKG Diagnostic Results Rate: normal Rhythm: NSR ST Segments: no acute changes Rhythm Strip Diag. Results EP Interpretation: yes Rhythm: NSR, no PVC's, no ectopy Chest X-Ray Diagnostic Results Chest X-Ray Diagnostic Results : Chest X-Ray Ordered: Yes # of Views/Limited/Complete: 1 View Indication: Other EP Interpretation: Yes Interpretation: no consolidation, no effusion, no pneumothorax Impression: No acute disease Electronically Signed by: Electronically signed by Stevenson Fuentes MD Last Vital Signs Date Time Temp Pulse Resp B/P (MAP) Pulse Ox O2 Delivery O2 Flow Rate FiO2 11/04/19 15:52 Room Air 11/04/19 15:33 98.0 77 18 112/73 (86) 97 Status: improved Disposition: PLACE IN OBSERVATION Condition: Serious Scripts Methocarbamol* (ROBAXIN-500*) 500 Mg Tablet 500 MG ORAL TID, #10 TAB 0 Refills Prov: Stevenson Fuentes MD 11/04/19 Potassium Chloride (KLOR-CON 10) 10 Meq Tablet.er 10 MEQ ORAL DAILY, #14 TAB 0 Refills Prov: Stevenson Fuentes MD 11/04/19 Hydrocodone Bit/Acetaminophen 5-325* (NORCO 5-325 TABLET*) 1 Each Tablet 1 TAB ORAL Q6H PRN for FOR PAIN, #10 TAB 0 Refills Prov: Stevenson Fuentes MD 11/04/19 Sulfacetamide Sodium (BLEPH-10) 5 Ml Drops 2 DROP OP Q6HR, #10 ML Prov: Stevenson Fuentes MD 11/04/19 Stevenson Fuentes MD Nov 04, 2019 08:52
[2019-11-04 09:24] LABS: HEMATOCRIT 27.3 % (37.0-47.0); HEMOGLOBIN 7.4 G/DL (12.0-16.0); MEAN CORPUSCULAR VOLUME 60 FL (80-99); PLATELET COUNT 332 K/UL (150-450); RED BLOOD COUNT 4.56 M/UL (4.20-5.40); RED CELL DISTRIBUTION WIDTH 16.8 % (11.6-14.8); WHITE BLOOD COUNT 5.8 K/UL (4.8-10.8)
--- NOTE | 2019-11-04 09:25 | NUR ---
ED Nurse Note: During administration of morphine, pt requested I administer only half the dose. MD bain, wasted 2 mg morphine in pyxis with ARTEMIO Leiva.
[2019-11-04 09:41] LABS: ANION GAP 8 mmol/L (5-15); BLOOD UREA NITROGEN 15 mg/dL (7-18); CALCIUM 8.2 MG/DL (8.5-10.1); CARBON DIOXIDE 26 MMOL/L (21-32); CHLORIDE 105 MMOL/L (98-107); CREATININE 0.5 MG/DL (0.55-1.30); POTASSIUM 3.3 MMOL/L (3.5-5.1); SODIUM 139 MMOL/L (136-145)
[2019-11-04 09:46] LABS: ALANINE AMINOTRANSFERASE 13 U/L (12-78); ALBUMIN 3.8 G/DL (3.4-5.0); ALBUMIN/GLOBULIN RATIO 0.9 (1.0-2.7); ALKALINE PHOSPHATASE 48 U/L (46-116); ASPARTATE AMINO TRANSFERASE 12 U/L (15-37); BILIRUBIN,TOTAL 0.2 MG/DL (0.2-1.0); CREATINE KINASE 73 U/L (26-308)
--- NOTE | 2019-11-04 09:48 | NUR ---
ED Nurse Note: Pt now asking for the other 2 mg morphine. ED MD made aware. Other 2 mg morphine ordered.
[2019-11-04] MEDS ORDERED: Morphine Sulfate 2mg/ml Inj(IV/IM USE ONLY) IVP ONE ×2 (10:00→10:30)
[2019-11-04 10:29] LABS: APPEARANCE,URINE CLEAR; BILIRUBIN, URINE NEGATIVE (NEGATIVE); COLOR,URINE PALE YELLOW; GLUCOSE, URINE (UA) NEGATIVE (NEGATIVE); KETONES,URINE 2+ (NEGATIVE); LEUKOCYTE ESTERASE ,URINE 1+ (NEGATIVE); NITRITE,URINE NEGATIVE (NEGATIVE); PH,URINE 7 (4.5-8.0); PROTEIN,URINE NEGATIVE (NEGATIVE); UROBILINOGEN,URINE NORMAL MG/DL (0.0-1.0)
--- NOTE | 2019-11-04 10:34 | NUR ---
ED Nurse Note: ED MD verbally ordered another bottle of tetracaine drops. Order noted and carried out. Drops handed to MD.
[2019-11-04 10:45] VITALS: BP 106/70
--- NOTE | 2019-11-04 10:59 | NUR ---
ED Nurse Note: pt denies pain at this time, morphine not administered in [facility].
--- NOTE | 2019-11-04 11:31 | Diagnostic Imaging Report ---
Procedure: XRAY Chest 1v Reason for study: Chest pain Comparison films: None. FINDINGS: A single one view chest is obtained. Vascularity is normal. The lung martinez are clear bilaterally. Cardiac and mediastinal silhouette are within normal limits. CP angles are sharp. The bony thorax appear unremarkable. IMPRESSION: NO ACUTE CARDIOPULMONARY DISEASE.
[2019-11-04] MEDS ORDERED: NORCO 5-325 TA1 EAC1 ORAL (13:26)
[2019-11-04] MEDS ORDERED: BLEPH-105 ML OP (13:26)
[2019-11-04] MEDS ORDERED: KLOR-CON 1010 MEQ ORAL (13:26)
[2019-11-04] MEDS ORDERED: ROBAXIN-500MG ORAL (13:33)
--- NOTE | 2019-11-04 14:59 | NUR ---
ED Nurse Note: report given to Tyler RN on 4E
--- NOTE | 2019-11-04 15:10 | NUR ---
TRANSFER TO FLOOR: Patient transferred to . Report given to ARTEMIO Swift. Belongings reviewed with patient prior to transfer. Pt alert and oriented x4, no acute distress noted. Transported in [facility] by FRANKLIN Perez.
--- NOTE | 2019-11-04 15:30 | NUR ---
NURSE NOTES: RECEIVED REPORT FROM SOPHY IN EMERGENCY. PT ARRIVED ON UNIT IN STABLE CONDITION. VSS. PT IS AXOX4, CALM, AND RESTING IN BED. PT DENIES HAVING ANY ALLERGIES TO FOOD OR MEDICATIONS. HOME MEDICATIONS REVIEWED AT BEDSIDE. PT STATES CRAMPING PAIN OF BILATERAL LEGS, 8/10. RIGHT EYE RED AND PT STATES VISION IS BLURRY. PT HAS DIZZINESS AND SOB WHEN AMBULATING. PT WAS EDUCATED ON FALL PRECAUTIONS AND TO HAVE STAFF ASSIST/SUPERVISE WHEN AMBULATING. PT VERBALIZED UNDERSTANDING. BELONGINGS CHECKED AT BEDSIDE AND ALL ACCOUNTED. PT REFUSED TO HAVE RICH STORED IN HONING MACHINE OPERATOR TOOL'S SAFE. RN LEFT MESSAGE FOR DR CERNA'S OFFICE FOR ADMISSION ORDERS.
[2019-11-04 15:33] VITALS: BP 112/73
[2019-11-04] MEDS ORDERED: Miralax 17gm pkt ORAL PRN (16:00)
[2019-11-04] MEDS ORDERED: Zolpidem 5mg tab ORAL PRN (16:00)
[2019-11-04] MEDS ORDERED: HYDROcodone/Acetamin 5/325 tab ORAL PRN ×2 (16:00→16:15)
--- NOTE | 2019-11-04 16:06 | NUR ---
NURSE NOTES: ADMISSION ORDERS FROM DR JOINER NOTED. RN ELFT MESSAGE FOR DR COCHRAN TO CLARIFY HOW MANY UNITS OF PRBC TO TRANSFUSE AND PT'S REQUEST FOR PRN MORPHINE IVP FOR PAIN. AWAITING NEW ORDERS.
[2019-11-04] MEDS ORDERED: Morphine Sulfate 4mg/ml Inj (IV USE ONLY) IVP PRN (16:15)
[2019-11-04] MEDS: Morphine Sulfate 2mg/ml Inj(IV/IM USE ONLY) IVP PRN ×2 (16:48→21:47)
[2019-11-04 17:14] LABS: LACTATE DEHYDROGENASE 182 U/L (81-234)
--- NOTE | 2019-11-04 17:28 | NUR ---
NURSE NOTES: RECEIVED ORDERS FROM DR COCHRAN. OK TO START IVP MORPHINE 2 MG Q2H PRN Q4H MODERATE PAIN, IVP MORPHINE 3MG PRN SEVERE PAIN Q4H. DR COCHRAN MADE AWARE PT'S REQUEST TO TRANSFUSE 1 UNIT PRBC TODAY AND 1 UNIT PRBC TOMORROW AND PER GERBER LIZARRAGA TO PT'S REQUEST. PT WAS GIVEN PRN MORPHINE 2MG ORDERED FOR PAIN. IN NO APPARENT DISTRESS AT THIS TIME. AWAITING CALL FROM BLOOD BANK FOR TRANSFUSION. WILL CONTINUE TO MONITOR.
--- NOTE | 2019-11-04 18:30 | NUR ---
NURSE NOTES: 1 UNIT PRBC WAS STARTED. VSS. PT EDUCATED ON ADVERSE SIGNS AND SYMPTOMS OF BLOOD TRANSFUSION. PT VERBALIZED UNDERSTANDING AND STATED SHE HAS HAD A PREVIOUS TRANSFUSION WITH NO REACTION. WILL CONTINUE TO MONITOR.
--- NOTE | 2019-11-04 18:45 | History & Physical ---
History and Physical History & Physicial Dictated for Int Med-Dr Lazar no. [id number]. Ed Collins MD Nov 04, 2019 18:45
[2019-11-04] MEDS: Ciprofloxacin Opth Soln 5ml RIGHT EYE SCH (18:51)
[2019-11-04] MEDS: Sulfacetamide 10% Opth 15ml Btl RIGHT EYE SCH (18:51)
[2019-11-04 19:17] LABS: % IRON SATURATION 3 % (15-50); IRON 10 ug/dL (50-175); TOTAL IRON BINDING CAPACITY 384 ug/dL (250-450)
--- NOTE | 2019-11-04 19:31 | NUR ---
NURSE NOTES: The Patient is alert and stable and does not seem to be in any distress at this time. She is presently receiving blood transfusion of PRBC well tolerated.The Resp is even and unlabored and the bilateral lung sounds are all clear on auscultation.The patient has a right AC that is patent and asymptomatic.The bed in low level and the call light within easy reach. will continue to monitor as indicated
--- NOTE | 2019-11-04 19:41 | NUR ---
NURSE HAND-OFF: Important Events on Shift: FIRST UNIT PRBC STARTED TODAY AT 1830HRS. 1 UNIT PRBC PENDING FOR TOMORROW. Patient Status: STABLE Diet: REGULAR Pending Orders: 1 UNIT PRBC TOMORROW Pending Results/Labs:N/A Pending MD notification:N/A Latest Vital Signs: Temperature 98.0 , Pulse 77 , B/P 112 /73 , Respiratory Rate 18 , O2 SAT 97 , Room Air, O2 Flow Rate . Vital Sign Comment: STABLE Latest Garcia Fall Score: 35 Fall Risk: Medium Risk Safety Measures: Call light Within Reach, Bed Alarm Zone 1, Side Rails Side Rails x2, Bed position Low and Locked. Fall Precautions: Yellow Socks Report given to Boston SMITH RN
[2019-11-04 20:00] VITALS: BP 105/70
--- NOTE | 2019-11-04 20:45 | History and Physical Report ---
DATE OF ADMISSION: 11/04/2019 CHIEF COMPLAINT: Patient is a 34-year-old female, who presents with a chief complaint of muscle cramping. HISTORY OF PRESENT ILLNESS: Began 1 week prior to admission. Patient began to experience cramping in her feet and legs. Patient states she has had low potassium in the past, which caused muscle cramping. Patient presented to [facility] emergency room. Patient was found to have hemoglobin of 7. Patient is admitted with severe anemia and muscle cramping. REVIEW OF SYSTEMS: CONSTITUTIONAL: Patient denies weight loss or gain. Patient denies fevers or chills. HEENT: Patient denies ear or throat pain. Patient denies headache. CARDIOVASCULAR: Patient denies palpitations or chest pain. CHEST: Patient denies wheeze or shortness of breath. ABDOMEN: Patient denies nausea, vomiting, diarrhea, or constipation. GENITOURINARY: Patient denies dysuria or increased frequency of urination. NEUROMUSCULAR: Patient denies seizures. Patient complains of muscle cramps as above. Patient denies generalized weakness. PAST MEDICAL HISTORY: Significant for systemic lupus. PAST SURGICAL HISTORY: Patient denies. CURRENT MEDICATIONS: 1. [place] 5/325 mg 1 tablet p.o. q.6h p.r.n. 2. Motrin 600 mg 1 tablet p.o. 3 times daily. 3. Robaxin 500 mg p.o. 3 times daily. 4. Potassium chloride 10 mEq p.o. daily. ALLERGIES: No known drug allergies. SOCIAL HISTORY: Patient is single and lives alone. Patient denies tobacco or alcohol use. PHYSICAL EXAMINATION: VITAL SIGNS: Temperature 98.2, respirations 16, pulse 79, blood pressure 105/67. GENERAL: Patient is well-developed, well-nourished thin-appearing female, no apparent distress. HEENT: Eyes, pupils are equal and responsive to light and accommodation. Extraocular movements are intact. NECK: Supple without lymphadenopathy. CHEST: Lungs are clear to auscultation bilaterally without wheezes or rales. CARDIOVASCULAR: Regular rate. S1, S2 are normal without murmurs, rubs, or gallops. ABDOMEN: Soft, nontender, nondistended. Positive bowel sounds. No evidence of hepatosplenomegaly. Currently, no rebound or guarding noted. EXTREMITIES: Negative for clubbing, cyanosis, or edema. RECTAL: Not performed. GENITAL: Not performed. NEUROLOGIC: Cranial nerves II through XII are grossly intact without focal deficits. Motor strength is 5/5 bilaterally. Deep tendon reflexes are 2+ plantar. LABORATORY STUDIES: WBC 5.8, hemoglobin 7.4, hematocrit 27.3, platelets 332,000. Sodium 139, potassium 3.3, chloride 105, CO2 26, BUN 15, creatinine 0.5, glucose 101. A chest x-ray was reported as no acute disease. ASSESSMENT: This is a 34-year-old female. 1. Severe anemia. 2. Muscle cramps. 3. Hypokalemia. TREATMENT: 1. Severe anemia. Patient has been typed and crossed for 2 units of packed RBCs. Transfuse when available. An anemia workup including Gastroenterology has been obtained. We will follow recommendations of Gastroenterology. Anemia may be secondary to heavy menses, which the patient experienced recently. 2. Hypokalemia. Patient has received oral potassium supplement. 3. Muscle cramps, probably secondary to iron deficiency versus hypokalemia as above. Ed Collins M.D. DR: DELVIN JOB#: [id number] CC:
--- NOTE | 2019-11-04 21:30 | NUR ---
NURSE NOTES: The patient completed her blood transfusion of PRBC and is alert and stable. No evidence of a transfusion reaction noted at this time. The Resp is even and unlabored and the bilateral lung sounds are all clear on auscultation. Will continue to monitor as indicated
[2019-11-04 22:30] VITALS: BP 104/69
[2019-11-05] VITALS: BP 104/69
[2019-11-05] MEDS: Sulfacetamide 10% Opth 15ml Btl RIGHT EYE SCH ×3 (00:36→12:47)
[2019-11-05] MEDS: Morphine Sulfate 2mg/ml Inj(IV/IM USE ONLY) IVP PRN (03:12)
[2019-11-05 04:00] VITALS: BP 117/72
[2019-11-05 06:00] VITALS: BP 117/72
--- NOTE | 2019-11-05 07:05 | NUR ---
NURSE NOTES: Received report from ARTEMIO Johnston. Patient awake, alert and oriented x4. Seen lying in bed, currently on room air. No s/sx of SOB/Distress. No c/o any pain or gi/gu discomfort. IV site located on RAC. Asymptomatic, inplace, and intact. Bed placed on lowest and locked, call light placed within reach and will continue to monitor. Patient due for 2nd bag of PRBC
[2019-11-05 07:12] LABS: BASOPHILS % (AUTO) 0.6 % (0.0-2.0); EOSINOPHILS % (AUTO) 3.2 % (0.0-3.0); HEMATOCRIT 31.7 % (37.0-47.0); HEMOGLOBIN 9.1 G/DL (12.0-16.0); LYMPHOCYTES % (AUTO) 19.6 % (20.0-45.0); MEAN CORPUSCULAR VOLUME 64 FL (80-99); MONOCYTES % (AUTO) 10.5 % (1.0-10.0); NEUTROPHILS % (AUTO) 66.1 % (45.0-75.0); PLATELET COUNT 278 K/UL (150-450); RED BLOOD COUNT 4.98 M/UL (4.20-5.40); RED CELL DISTRIBUTION WIDTH 20.7 % (11.6-14.8); WHITE BLOOD COUNT 5.9 K/UL (4.8-10.8)
--- NOTE | 2019-11-05 07:25 | NUR ---
HAND-OFF: Report given to Tonya ULLOA.Endored to her that the patient received a blood tranfusion of PRBC 1 unit and will need another unit to be tranfuse at the day shift
[2019-11-05 07:28] LABS: ALANINE AMINOTRANSFERASE 27 U/L (12-78); ALBUMIN 3.5 G/DL (3.4-5.0); ALBUMIN/GLOBULIN RATIO 0.9 (1.0-2.7); ALKALINE PHOSPHATASE 38 U/L (46-116); ANION GAP 3 mmol/L (5-15); ASPARTATE AMINO TRANSFERASE 21 U/L (15-37); BILIRUBIN,TOTAL 0.3 MG/DL (0.2-1.0); BLOOD UREA NITROGEN 6 mg/dL (7-18); CALCIUM 8.3 MG/DL (8.5-10.1); CARBON DIOXIDE 28 MMOL/L (21-32); CHLORIDE 107 MMOL/L (98-107); CREATININE 0.7 MG/DL (0.55-1.30); SODIUM 138 MMOL/L (136-145)
[2019-11-05 08:00] VITALS: BP 126/96
--- NOTE | 2019-11-05 08:43 | NUR ---
NURSE NOTES: Picked up 1PRBC for blood transfusion at blood bank. 2 RNs present to confirm patient, blood type and expiration date of blood. VS prior to infusion 98.2, 126/96 and pulse 77. Started blood transfusion. Will continue to monitor for any adverse reactions.
--- NOTE | 2019-11-05 08:58 | NUR ---
NURSE NOTES: Checked patient after 15 minutes of blood transfusion. No adverse reactions observed. VS stable at 98.1, 117/85 and 71. Patient stable. Will continue to monitor patient.
[2019-11-05] MEDS: Ciprofloxacin Opth Soln 5ml RIGHT EYE SCH ×2 (09:43→12:47)
--- NOTE | 2019-11-05 10:40 | NUR ---
NURSE NOTES: Patient verbalized muscle spasms in bilateral calfs. Received order from Dr. Dove for Robaxin 500mg PO TID. Order repeated back and confirmed. Noted and carried out.
[2019-11-05] MEDS: Methocarbamol 500mg tab ORAL SCH ×2 (10:59→12:54)
[2019-11-05 12:00] VITALS: BP 110/76
--- NOTE | 2019-11-05 12:32 | NUR ---
CASE MANAGEMENT:INITIAL REVIEW 34 YR OLD FEMALE FROM HOME CC;GENERAL COMPLAINT SI;SYMPTOMATIC ANEMIA. HYPOKALEMIA. 98.7 79 16 104/67 99% ON RA H/H 7.4/27.3 K+ 3.3 CA 8.2 IRON 10 UNSAT IRON BINDING 374 UA+ KETONES, BLOOD, LEUKOCYTE ESTERASE, RBC CXR ~ NO ACUTE CARDIOPULMONARY DISEASE. IS;IVF NS BOLUS PEPCID IV MORPHINE IV ZOFRAN IV KCL PO ONCE 1 UNIT PRBC ADMITTED TO MED SURG 11/04/19 @ 1503 MED SURG STATUS DCP;FROM HOME Addendum: 11/05/19 at 1255 by KERRY VEGAS LVN LVN INTERQUAL CRITERIA MET
--- NOTE | 2019-11-05 13:00 | NUR ---
NURSE NOTES: Transfusion finished. No adverse reactions observed. Patient VS stable at 98.4, 112/76, and 68.
--- NOTE | 2019-11-05 13:57 | Consultation ---
History of Present Illness General Date patient seen: Nov 05, 2019 Chief Complaint: General Complaint Present Illness HPI 34 year old female presented to ER with cramping in her feet and legs. She was found severely anemic and is admitted for further evaluation. Allergies: Coded Allergies: No Known Allergies (Unverified , 05/28/18) Medication History Scheduled Ibuprofen (Motrin), 600 MG ORAL THREE TIMES A DAY Methocarbamol* (Robaxin-500*), 500 MG ORAL TID Ofloxacin (Ofloxacin), 2 DROP OT TID Potassium Chloride (Klor-Con 10), 10 MEQ ORAL DAILY Sulfacetamide Sodium (Bleph-10), 2 DROP OP Q6HR Scheduled PRN Hydrocodone Bit/Acetaminophen 5-325* (Arcadia 5-325 Tablet*), 1 TAB ORAL Q6H PRN for FOR PAIN Hydrocodone/Acetaminophen 5-325* (Hydrocodone/Acetaminophen 5-325*), 1 TAB ORAL Q6H PRN for For Pain Patient History Healthcare decision maker Resuscitation status Advanced Directive on File Past Medical/Surgical History Past Medical/Surgical History: (1) Iron deficiency (2) Chronic pain (3) Chronic anterior uveitis (4) Lupus (5) Corneal opacification Review of Systems Respiratory: Reports: no symptoms Physical Exam General Appearance: WD/WN, no apparent distress Lines, tubes and drains: peripheral, PICC HEENT: normocephalic, atraumatic Neck: non-tender, supple Respiratory/Chest: chest wall non-tender, lungs clear Breasts: no masses Cardiovascular/Chest: normal peripheral pulses, regular rhythm Abdomen: normal bowel sounds Genitourinary/Rectal: normal genital exam Extremities: normal range of motion Last 24 Hour Vital Signs Date Time Temp Pulse Resp B/P (MAP) Pulse Ox O2 Delivery O2 Flow Rate FiO2 11/05/19 12:00 98.2 70 18 110/76 (87) 98 11/05/19 09:00 Room Air 11/05/19 08:00 98.2 77 19 126/96 (106) 98 11/05/19 06:00 97.7 75 18 117/72 (87) 98 11/05/19 04:00 97.7 75 18 117/72 (87) 98 11/05/19 00:00 97.8 75 19 104/69 (81) 97 11/04/19 22:30 97.8 75 19 104/69 (81) 97 11/04/19 21:00 Room Air 11/04/19 20:00 97.9 77 19 105/70 (82) 97 11/04/19 15:52 Room Air 11/04/19 15:33 98.0 77 18 112/73 (86) 97 11/04/19 15:10 98.8 75 16 105/72 100 Room Air Intake and Output 11/04/19 11/05/19 19:00 07:00 Intake Total 300 ml 320 ml Balance 300 ml 320 ml Intake Oral 320 ml IV Total 300 ml # Voids 1 2 Laboratory Tests Test 11/04/19 17:48 11/05/19 05:50 Erythrocyte Sedimentation Rate 17 MM/HR (0-20) Reticulocyte Count 0.5 % (0.5-2.0) Prothrombin Time 11.3 SEC (9.30-11.50) Prothromb Time International Ratio 1.0 (0.9-1.1) Activated Partial Thromboplast Time 26 SEC (23-33) Carcinoembryonic Antigen Pending White Blood Count 5.9 K/UL (4.8-10.8) Red Blood Count 4.98 M/UL (4.20-5.40) Hemoglobin 9.1 G/DL (12.0-16.0) L Hematocrit 31.7 % (37.0-47.0) L Mean Corpuscular Volume 64 FL (80-99) L Mean Corpuscular Hemoglobin 18.3 PG (27.0-31.0) L Mean Corpuscular Hemoglobin Concent 28.6 G/DL (32.0-36.0) L Red Cell Distribution Width 20.7 % (11.6-14.8) H Platelet Count 278 K/UL (150-450) Mean Platelet Volume 7.3 FL (6.5-10.1) Neutrophils (%) (Auto) 66.1 % (45.0-75.0) Lymphocytes (%) (Auto) 19.6 % (20.0-45.0) L Monocytes (%) (Auto) 10.5 % (1.0-10.0) H Eosinophils (%) (Auto) 3.2 % (0.0-3.0) H Basophils (%) (Auto) 0.6 % (0.0-2.0) Sodium Level 138 MMOL/L (136-145) Potassium Level 4.0 MMOL/L (3.5-5.1) Chloride Level 107 MMOL/L (98-107) Carbon Dioxide Level 28 MMOL/L (21-32) Anion Gap 3 mmol/L (5-15) L Blood Urea Nitrogen 6 mg/dL (7-18) L Creatinine 0.7 MG/DL (0.55-1.30) Estimat Glomerular Filtration Rate > 60 mL/min (>60) Glucose Level 79 MG/DL (74-106) Calcium Level 8.3 MG/DL (8.5-10.1) L Total Bilirubin 0.3 MG/DL (0.2-1.0) Aspartate Amino Transf (AST/SGOT) 21 U/L (15-37) Alanine Aminotransferase (ALT/SGPT) 27 U/L (12-78) Alkaline Phosphatase 38 U/L (46-116) L Total Protein 7.2 G/DL (6.4-8.2) Albumin 3.5 G/DL (3.4-5.0) Globulin 3.7 g/dL Albumin/Globulin Ratio 0.9 (1.0-2.7) L Thyroid Stimulating Hormone (TSH) 1.425 uiU/mL (0.358-3.740) Height (Feet): 4 Height (Inches): 11.00 Weight (Pounds): 100 Medications Current Medications Medications (Trade) Dose Ordered Sig/Carlos Route PRN Reason Start Time Stop Time Status Last Admin Dose Admin Acetaminophen (Tylenol) 650 mg Q4H PRN ORAL fever 11/04/19 16:00 12/04/19 15:59 Acetaminophen/ Hydrocodone Bitart (Arcadia 5/325) 1 tab Q6H PRN ORAL Mild Pain (Pain Scale 1-3) 11/04/19 16:15 11/11/19 16:14 Ciprofloxacin (Ciloxan Opth Soln) 1 drop TID RIGHT EYE 11/04/19 18:00 11/11/19 17:59 11/05/19 12:47 Dextrose (Dextrose 50%) 25 ml Q30M PRN IV Hypoglycemia 11/04/19 16:00 02/02/20 15:59 Dextrose (Dextrose 50%) 50 ml Q30M PRN IV Hypoglycemia 11/04/19 16:00 02/02/20 15:59 Methocarbamol (Robaxin) 500 mg TID ORAL 11/05/19 11:00 12/05/19 10:59 11/05/19 12:54 Morphine Sulfate (Morphine Sulfate) 2 mg Q4H PRN IVP Moderate Pain (Pain Scale 4-6) 11/04/19 16:15 11/11/19 16:14 11/05/19 03:12 Morphine Sulfate (Morphine Sulfate) 3 mg Q4H PRN IVP Severe Pain (Pain Scale 7-10) 11/04/19 16:15 11/11/19 16:14 Ondansetron HCl (Zofran) 4 mg Q6H PRN IVP Nausea & Vomiting 11/04/19 16:00 12/04/19 15:59 11/05/19 04:14 Polyethylene Glycol (Miralax) 17 gm HSPRN PRN ORAL Constipation 11/04/19 16:00 12/04/19 15:59 Sulfacetamide Sodium (Sodium Sulamyd) 1 drop Q6HR RIGHT EYE 11/04/19 18:00 11/11/19 17:59 11/05/19 12:47 Zolpidem Tartrate (Ambien) 5 mg HSPRN PRN ORAL Insomnia 11/04/19 16:00 11/11/19 15:59 Assessment/Plan Problem List: (1) Symptomatic anemia ICD Codes: D64.9 - Anemia, unspecified SNOMED: 138564504 (2) Corneal abrasion ICD Codes: S05.00XA - Injury of conjunctiva and corneal abrasion without foreign body, unspecified eye, initial encounter SNOMED: 53883509 Qualifiers: Qualified Codes: S05.01XA - Injury of conjunctiva and corneal abrasion without foreign body, right eye, initial encounter (3) Chronic pain ICD Codes: G89.29 - Other chronic pain SNOMED: 82938548 Assessment/Plan: prbc prn symptomatic management check labs again Jazlyn Dove MD Nov 05, 2019 13:57
--- NOTE | 2019-11-05 14:46 | NUR ---
NURSE NOTES: Notified lab that a stat CBC order was palced at 1337 hours. Labs needed to discharge patient. nuclear medical technologist stated he would send someone up.
[2019-11-05 15:02] LABS: EOSINOPHILS % (AUTO) 1.8 % (0.0-3.0); HEMATOCRIT 37.7 % (37.0-47.0); HEMOGLOBIN 11.1 G/DL (12.0-16.0); LYMPHOCYTES % (AUTO) 15.3 % (20.0-45.0); MEAN CORPUSCULAR VOLUME 66 FL (80-99); MONOCYTES % (AUTO) 9.4 % (1.0-10.0); NEUTROPHILS % (AUTO) 72.4 % (45.0-75.0); PLATELET COUNT 296 K/UL (150-450); RED BLOOD COUNT 5.68 M/UL (4.20-5.40)
--- NOTE | 2019-11-05 15:55 | Discharge Summary ---
Discharge Summary Hospital Course Date of Admission Nov 04, 2019 at 14:07 Date of Discharge Admitting Diagnosis symptomatic anemia HPI Van Bryant is a 34 year old female who was admitted on Nov 04, 2019 at 14:07 for Symptomatic Anemia Discharge Discharge Vital Signs Last Vital Signs Date Time Temp Pulse Resp B/P (MAP) Pulse Ox O2 Delivery O2 Flow Rate FiO2 11/05/19 12:00 98.2 70 18 110/76 (87) 98 11/05/19 09:00 Room Air Discharge Disposition Patient was discharged to Long Lazar MD Nov 05, 2019 15:55
--- NOTE | 2019-11-05 16:00 | NUR ---
NURSE NOTES: Notified patient of discharge order placed by Dr. Dove, patient verbalized wanting to speak to provider before being discharged. Notified Dr. Dove and was directed to Dr. Lazar. Notified Charge Nurse. Both primary nurse and charge nurse went to patient's room to speak to patient. Explained discharge order placed, patient refusing to be discharged and demanding to be monitored overnight. Patient slowly becoming verbally aggressive and demanding to speak to someone with more authority (Sweatband Maker/). Dr. Lazar arrived to unit and assessed patient, no change in discharge orders. Patient became more angry and still refused discharge.
--- NOTE | 2019-11-05 16:10 | NUR ---
NURSE NOTES: Went to patient's room, assessed patient. Patient observed to have equal strength in both upper and lower extremity. Able to ambulate well. No s/sx of any pain or discomfort. No s/sx of SOB/Distress.
--- NOTE | 2019-11-05 16:30 | NUR ---
NURSE NOTES: Removed IV line and dressing applied. Patient belongings checked and accounted for. All discharge paper works signed and provided to patient. Discharge teaching provided and patient verbalized understanding.
--- NOTE | 2019-11-05 17:00 | NUR ---
NURSE NOTES: Patient discharged from unit at 1700. Was picked up by private car. ID band removed. All belongings brought with patient. Patient in stable in condition upon discharge.
--- NOTE | 2019-11-05 19:18 | Discharge Summary ---
Discharge Summary Hospital Course Date of Admission Nov 04, 2019 at 14:07 Date of Discharge Nov 05, 2019 at 17:01 Admitting Diagnosis symptomatic anemia HPI Van Bryant is a 34 year old female who was admitted on Nov 04, 2019 at 14:07 for Symptomatic Anemia Hospital Course Discharge Discharge Vital Signs Last Vital Signs Date Time Temp Pulse Resp B/P (MAP) Pulse Ox O2 Delivery O2 Flow Rate FiO2 11/05/19 12:00 98.2 70 18 110/76 (87) 98 11/05/19 09:00 Room Air Discharge Disposition Patient was discharged to Long Lazar MD Nov 05, 2019 19:18
--- NOTE | 2019-11-05 20:15 | Discharge Summary ---
DATE OF ADMISSION: 11/04/2019 DATE OF DISCHARGE: 11/05/2019 HISTORY OF PRESENT ILLNESS AND HOSPITAL COURSE: This is a 34-year-old female with past medical history significant for SLE systemic lupus, who presented to the hospital complaining about muscle weakness and fatigue, cramps. Shortly after initial evaluation, the patient was noted to be severely anemic with a hemoglobin of 7.4. Subsequently, the patient received multiple units of packed RBC. Latest laboratory was noted to be hemoglobin of 11 and the patient's status improved and subsequently was discharged home today to be followed as an outpatient with her primary physician at [facility]. FINAL DIAGNOSES: 1. Iron-deficiency anemia. 2. SLE. 3. Hypokalemia. MEDICATIONS ON DISCHARGE: Continue discharge medication list. ACTIVITY: As tolerated. DIET: Diet would be regular diet. The patient was advised to follow up with primary physician at [facility] within one week. Long Lazar M.D. DR: NISHA JOB#: [id number] CC:
--- NOTE | 2019-11-10 22:10 | Cardiology Report ---
APPROVED REPORT EKG Measurement Heart [id number] <Conclusion> Normal sinus rhythm Normal ECG
== END 2019-11-05 17:01 | disposition home or self-care (01) ==
LOC: EMR 09:00 → 4E 14:07 → INTOOBSV 14:07 → EDBEDREQ 14:13
PROC: 30233N1 Transfusion of Nonautologous Red Blood Cells into Peripheral Vein, Percutaneous Approach (ICD-10-PCS; principal; 2019-11-04)
DX: D50.9 Iron deficiency anemia, unspecified (principal); E87.6 Hypokalemia; M32.9 Systemic lupus erythematosus, unspecified; G89.29 Other chronic pain; S05.01XA Injury of conjunctiva and corneal abrasion without foreign body, right eye, initial encounter; X58.XXXA Exposure to other specified factors, initial encounter
CPT/HCPCS: 36415; 36430; 71045; 80053; 81003; 81025; 82378; 82550; 82607; 82746; 83540; 83550; 83615; 83735; 83880; 84443; 84484; 85007; 85025; 85044; 85060; 85610; 85651; 85730; 86850; 86900; 86901; 86920; 93005; 96361; 96365; 96375; 96376; J2270; J2405; J3480; J7030; J7050; P9016; S0028; Z7502; Z7514; 99285; G0378; J8499

== ENCOUNTER 2020-05-07 15:12 | Emergency (ER) | payer MEDICAID ==
[~2020-05-07] VITALS: Ht 152.4 cm; Wt 45.4 kg
[~2020-05-07 15:12] MED LIST changes: +BLEPH-105 ML OP; +KLOR-CON 1010 MEQ ORAL; +NORCO 5-325 TA1 EAC1 ORAL; +ROBAXIN-500MG ORAL
[2020-05-07 15:48] VITALS: BP 102/82
[2020-05-07] MEDS ORDERED: Tetracaine 0.5% Opth 4ml Soln LEFT EYE ONE (16:00)
[2020-05-07] MEDS ORDERED: Fluorescein Strips LEFT EYE ONE (16:00)
--- NOTE | 2020-05-07 16:00 | NUR ---
pt arrives to ER with complaints of headache, chest pain with inspiration, and body aches x 1 day. pt states history of lupus an RA. PT describes pain as a constant ache 10/10. pt denies fever, sob, cough, or diarrhea at this time. pt is currently on the phone with family member.
[2020-05-07] MEDS ORDERED: Ciprofloxacin Opth Soln 5ml LEFT EYE ONE (16:15)
--- NOTE | 2020-05-07 16:19 | NUR ---
assisted provided with eye exam.
--- NOTE | 2020-05-07 16:22 | Emergency Room Report ---
History of Present Illness General Chief Complaint: Headache Source: Patient Present Illness HPI Patient is a 34-year-old female presents for increased generalized weakness as well as headache. Reports having increased blurred vision to the left eye. Prior history of lupus. Had previous blood transfusion approximately 6 months ago. She states she been taking iron as well as folic acid recently. Patient i s chronically on prednisone 20 mg daily. Reports being compliant with her medications. Reports having increased foreign body sensation to the left eye. Had previously had similar symptoms in the past and reports having some increased left-sided eye discharge. Denies any fever. Does not wear contact lenses. Patient had previously been seeing ophthalmology. Allergies: Coded Allergies: No Known Allergies (Unverified , 05/28/18) COVID-19 Screening Contact w/high risk pt: No Experienced COVID-19 symptoms?: No COVID-19 Testing performed REAL PROPERTY EVALUATOR: No COVID-19 Screening: Negative COVID-19 Nursing Documentation-PMH Hx Cardiac Problems: No Hx Hypertension: No Hx Pacemaker: No Hx Asthma: No Hx COPD: No Hx Diabetes: No Hx Cancer: No Hx Gastrointestinal Problems: No Hx Dialysis: No History Of Psychiatric Problem: No Hx Neurological Problems: No Hx Cerebrovascular Accident: No Hx Seizures: No Physical Exam Vital Signs Date Time Temp Pulse Resp B/P (MAP) Pulse Ox O2 Delivery O2 Flow Rate FiO2 05/07/20 15:48 91 18 102/82 (89) 96 Room Air 05/07/20 15:55 98.3 Sp02 EP Interpretation: reviewed, normal General Appearance: normal inspection, well appearing, no apparent distress, alert, GCS 15 Head: atraumatic Eyes: bilateral eye other - no dye uptake ENT: normal ENT inspection, hearing grossly normal, normal voice Neck: normal inspection, full range of motion, supple, no bony tend Respiratory: normal inspection, lungs clear, normal breath sounds, no respiratory distress, no retraction, no wheezing Cardiovascular #1: regular rate, rhythm, no edema Gastrointestinal: normal inspection, normal bowel sounds, non tender, soft, no guarding, no hernia Genitourinary: no CVA tenderness Musculoskeletal: normal inspection, back normal, normal range of motion Neurologic: alert, motor strength/tone normal, automobile spring repairer III-XII nml as tested, oriented x3, responsive, speech normal, normal inspection Psychiatric: normal inspection, judgement/insight normal, mood/affect normal Medical Decision Making Diagnostic Impression: Primary Impression: Anemia Additional Impressions: Lupus Chronic anterior uveitis UTI (urinary tract infection) ER Course Patient presents for generalized weakness and difficulty with vision. Dif ferential diagnosis include was not limited to anemia, uveitis, iritis, bacterial conjunctivitis among others. Because of complexity of patient's case laboratory tests and imaging studies were ordered. Patient's laboratory testing did show some evidence of anemia. Patient has chronic history of anemia is currently taking iron pills and is run out of her medications for lupus. Dutch guerra was given oral steroids as well as medications for joint pain. Patient's eye does not appear to have any definite evidence of dye uptake there does appear to be some anterior cataract formation to both eyes likely from chronic steroid use. Patient was advised to follow-up with her tunneling machine operator. She was given prescription for topical antibiotics due to patient stating that there is some greenish discharge out of her left eye. Patient was advised to follow- up for recheck of soon as possible with her tunneling machine operator. She is advised to return if worse. This medical record is generated with [employer] network support administrator software. There may be some network support administrator discrepancies related to use of this software Labs Test 05/07/20 16:15 05/07/20 17:13 White Blood Count 5.1 K/UL (4.8-10.8) Red Blood Count 4.74 M/UL (4.20-5.40) Hemoglobin 9.4 G/DL (12.0-16.0) Hematocrit 36.0 % (37.0-47.0) Mean Corpuscular Volume 76 FL (80-99) Mean Corpuscular Hemoglobin 19.9 PG (27.0-31.0) Mean Corpuscular Hemoglobin Concent 26.3 G/DL (32.0-36.0) Red Cell Distribution Width 17.3 % (11.6-14.8) Platelet Count 349 K/UL (150-450) Mean Platelet Volume 7.7 FL (6.5-10.1) Neutrophils (%) (Auto) 61.6 % (45.0-75.0) Lymphocytes (%) (Auto) 22.6 % (20.0-45.0) Monocytes (%) (Auto) 8.2 % (1.0-10.0) Eosinophils (%) (Auto) 6.4 % (0.0-3.0) Basophils (%) (Auto) 1.1 % (0.0-2.0) Sodium Level 141 MMOL/L (136-145) Potassium Level 3.6 MMOL/L (3.5-5.1) Chloride Level 105 MMOL/L (98-107) Carbon Dioxide Level 26 MMOL/L (21-32) Anion Gap 10 mmol/L (5-15) Blood Urea Nitrogen 13 mg/dL (7-18) Creatinine 0.7 MG/DL (0.55-1.30) Estimat Glomerular Filtration Rate > 60 mL/min (>60) Glucose Level 88 MG/DL (74-106) Calcium Level 9.4 MG/DL (8.5-10.1) Total Bilirubin 0.3 MG/DL (0.2-1.0) Aspartate Amino Transf (AST/SGOT) 13 U/L (15-37) Alanine Aminotransferase (ALT/SGPT) 18 U/L (12-78) Alkaline Phosphatase 52 U/L (46-116) Troponin I 0.000 ng/mL (0.000-0.056) Total Protein 8.0 G/DL (6.4-8.2) Albumin 3.9 G/DL (3.4-5.0) Globulin 4.1 g/dL Albumin/Globulin Ratio 1.0 (1.0-2.7) Urine Color Pale yellow Urine Appearance Slightly cloudy Urine pH 7 (4.5-8.0) Urine Specific Hooper 1.005 (1.005-1.035) Urine Protein Negative (NEGATIVE) Urine Glucose (UA) Negative (NEGATIVE) Urine Ketones Negative (NEGATIVE) Urine Blood Negative (NEGATIVE) Urine Nitrite Negative (NEGATIVE) Urine Bilirubin Negative (NEGATIVE) Urine Urobilinogen Normal MG/DL (0.0-1.0) Urine Leukocyte Esterase 2+ (NEGATIVE) Urine RBC 0-2 /HPF (0 - 2) Urine WBC 15-20 /HPF (0 - 2) Urine Squamous Epithelial Cells Many /LPF (NONE/OCC) Urine Bacteria Moderate /HPF (NONE) Urine HCG, Qualitative Negative (NEGATIVE) Last Vital Signs Date Time Temp Pulse Resp B/P (MAP) Pulse Ox O2 Delivery O2 Flow Rate FiO2 05/07/20 15:55 98.3 05/07/20 15:48 91 18 102/82 (89) 96 Room Air Status: improved Disposition: HOME, SELF-CARE Condition: Stable Scripts Hydrocodone/Acetaminophen 5-325* (HYDROCODONE/ACETAMINOPHEN 5-325*) 1 Each Tablet 1 TAB ORAL Q4H PRN for For Pain, #10 TAB 0 Refills Prov: Chris Merrill MD 05/07/20 Cephalexin* (KEFLEX*) 250 Mg Tablet 250 MG ORAL EVERY 6 HOURS, #28 TAB Prov: Chris Merrill MD 05/07/20 Prednisone* (PREDNISONE*) 20 Mg Tablet 40 MG ORAL DAILY, #15 TAB Prov: Chris Merrill MD 05/07/20 Ciprofloxacin HCl (Ciloxan) 5 Ml Drops 5 ML OP FOUR TIMES A DAY, #5 ML Prov: Chris Merrill MD 05/07/20 Referrals: NOT CHOSEN IPA/,REFERRING (PCP) Chris Merrill MD May 07, 2020 16:21
[2020-05-07 16:34] LABS: BASOPHILS % (AUTO) 1.1 % (0.0-2.0); EOSINOPHILS % (AUTO) 6.4 % (0.0-3.0); HEMOGLOBIN 9.4 G/DL (12.0-16.0); LYMPHOCYTES % (AUTO) 22.6 % (20.0-45.0); MEAN CORPUSCULAR VOLUME 76 FL (80-99); MONOCYTES % (AUTO) 8.2 % (1.0-10.0); NEUTROPHILS % (AUTO) 61.6 % (45.0-75.0); PLATELET COUNT 349 K/UL (150-450); RED BLOOD COUNT 4.74 M/UL (4.20-5.40); RED CELL DISTRIBUTION WIDTH 17.3 % (11.6-14.8); WHITE BLOOD COUNT 5.1 K/UL (4.8-10.8)
[2020-05-07 16:50] LABS: ANION GAP 10 mmol/L (5-15); BLOOD UREA NITROGEN 13 mg/dL (7-18); CALCIUM 9.4 MG/DL (8.5-10.1); CARBON DIOXIDE 26 MMOL/L (21-32); CHLORIDE 105 MMOL/L (98-107); CREATININE 0.7 MG/DL (0.55-1.30); POTASSIUM 3.6 MMOL/L (3.5-5.1); SODIUM 141 MMOL/L (136-145)
[2020-05-07 16:57] LABS: ALANINE AMINOTRANSFERASE 18 U/L (12-78); ALBUMIN 3.9 G/DL (3.4-5.0); ALKALINE PHOSPHATASE 52 U/L (46-116); ASPARTATE AMINO TRANSFERASE 13 U/L (15-37); BILIRUBIN,TOTAL 0.3 MG/DL (0.2-1.0)
[2020-05-07] MEDS ORDERED: Ketorolac 30mg Inj IV ONE (17:00)
[2020-05-07] MEDS ORDERED: CILOXAN5 ML OP (17:01)
[2020-05-07] MEDS ORDERED: PREDNISONE20 MG ORAL (17:06)
[2020-05-07 17:20] LABS: APPEARANCE,URINE SLIGHTLY CLOUDY; BILIRUBIN, URINE NEGATIVE (NEGATIVE); COLOR,URINE PALE YELLOW; GLUCOSE, URINE (UA) NEGATIVE (NEGATIVE); KETONES,URINE NEGATIVE (NEGATIVE); LEUKOCYTE ESTERASE ,URINE 2+ (NEGATIVE); NITRITE,URINE NEGATIVE (NEGATIVE); PH,URINE 7 (4.5-8.0); PROTEIN,URINE NEGATIVE (NEGATIVE); UROBILINOGEN,URINE NORMAL MG/DL (0.0-1.0)
[2020-05-07] MEDS ORDERED: cefTRIAXone 1 GM in NS 55 ML IVPB ONE (17:45)
[2020-05-07] MEDS ORDERED: CEPHALEXIN250 M2 ORAL (17:48)
[2020-05-07] MEDS ORDERED: HYDROCODON-ACE1 EA15 ORAL (17:50)
== END 2020-05-07 18:30 | disposition home or self-care (01) ==
LOC: EMR 15:47
DX: D64.9 Anemia, unspecified (principal); M32.9 Systemic lupus erythematosus, unspecified; H20.10 Chronic iridocyclitis, unspecified eye; N39.0 Urinary tract infection, site not specified
CPT/HCPCS: 36415; 80053; 81003; 81025; 84484; 85025; 87086; 96361; 96365; 96375; J1885; J7030; J7512; Z7502; 99284